=== PATIENT | male | born 1945 | race American Indian/Alaskan Native ===

== ENCOUNTER 2018-07-25 21:48 | Inpatient (IN) | payer MEDICARE, MEDICAID ==
[2018-07-25] MEDS ORDERED: Dextrose 50% SYRINGE Inj (50 ml) IV STA ×2 (21:55→22:00)
[2018-07-25] MEDS ORDERED: Dextrose 50% SYRINGE Inj (50 ml) ONE (22:02)
[2018-07-25] MEDS ORDERED: Sodium Chloride 0.9% 1,000 ML IV ONE (22:18)
--- NOTE | 2018-07-25 22:28 | C.PDOC ---
History Of Present Illness 67 year old male is brought in by EMS for evaluation. As per EMS patient was found in the street, cold, wet and with altered mental status. Patient currently sleeping while in the ED. Unable to obtain history from patient. Time Seen by Provider: 07/25/18 22:17 Chief Complaint (Nursing): Medical Clearance History Per: EMS History/Exam Limitations: clinical condition Onset/Duration Of Symptoms: Hrs Current Symptoms Are (Timing): Still Present Recent travel outside of the [place]: No Additional History Per: EMS Past Medical History Reviewed: Historical Data, Nursing Documentation, Vital Signs Vital Signs: Last Vital Signs Temp 88.1 F L 07/25/18 22:04 Pulse 68 L 07/25/18 22:04 Resp 14 L 07/25/18 22:04 BP 97/46 H 07/25/18 22:04 Pulse Ox 92 L 07/25/18 22:04 - Medical History PMH: No Chronic Diseases Surgical History: No Surg Hx Family History: States: Unknown Family Hx - Social History Hx Tobacco Use: No Hx Alcohol Use: No Hx Substance Use: No Review Of Systems Review Of Systems: ROS cannot be obtained secondary to pt's inabilty to answer questions. Physical Exam - Physical Exam Appears: Other (sleeping, responds to painful stimuli) Skin: Warm, Dry, Other (small 0.5 cm skin flap over the MCP) Head: Atraumatic, Normacephalic Eye(s): bilateral: Normal Inspection Neck: Supple Chest: Symmetrical Cardiovascular: Rhythm Regular Respiratory: No Rales, No Rhonchi, No Wheezing Gastrointestinal/Abdominal: Soft, No Tenderness Back: Normal Inspection Extremity: Bilateral: Atraumatic, Normal Color And Temperature, Normal ROM Neurological/Psych: Other (sleeping, responds to painful stimuli) Gait: Unable To Assess ED Course And Treatment - Laboratory Results Result Diagrams: 07/25/18 22:50 07/25/18 22:50 ECG: Interpreted By Me, Viewed By Me O2 Sat by Pulse Oximetry: 100 (ON RA) Pulse Ox Interpretation: Normal - Radiology CXR: Interpreted by Me, Viewed By Me CXR Interpretation: Yes: COPD. No: Infiltrates, Fracture, Cardiomegaly - CT Scan/US CT head Other Rad Studies (CT/US): Read By Radiologist, Radiology Report Reviewed CT/US Interpretation: CT scan of the head. CLINICAL HISTORY: Change in mental staus. TECHNIQUE: Multiple axial CT images were obtained through the brain without IV contrast material. COMMENTS: There is normal configuration of sella turcica. There are no intra or extra-axial collections. There is no mass effect or midline shift. There is no evidence of hematoma formation. No hydrocephalus is present. The ventricles are symmetrical. No abnormal calcifications are present. There is diffuse age-appropriate cerebellar and cerebral atrophy with proportionally dilated ventricles and cortical sulci. There are bilateral periventricular and subcortical white matter hypolucencies compatible with mild chronic microvascular disease. Otherwise, no significant focal abnormalities are seen either in the posterior fossa or supratentorial compartment. IMPRESSION: 1. Age-appropriate cerebellar and cerebral atrophy. 2. Mild chronic microvascular disease. 3. No evidence of acute intracranial pathology. Thank you for your kind referral of this patient. . Electronically signed on Jul 26, 2018 1:43:11 AM EST by: Claudia Fields M.D., Certified by JENNIFER, MSK, Neuroradiolog Progress Note: Plan: - ABG. - EKG. - Labs. - CXR. - IV fluids. - Blood culture. - UA. Nurse attempted to obtain rectal temperature, patient became agitated, combative moving all extremities kicking trying to bite. Immediately went back to sleep Reevaluation Time: 04:51 Reassessment Condition: Improved Disposition Discussed With Dr.: Benito Means Comment: accepted the pt on his service and took over the care at 6:02 AM Doctor Will See Patient In The: ED Counseled Patient/Family Regarding: Studies Performed, Diagnosis, Need For Followup - Disposition Referrals: [facility] [Outside] Disposition: HOSPITALIZED Disposition Time: 22:27 Condition: FAIR Instructions: Hypothermia Forms: ePrep (Kazakh) - Clinical Impression Clinical Impression: Medical assessment, Hypothermia - Scribe Statement The provider has reviewed the documentation as recorded by the Scribe Yunior Mccall All medical record entries made by the Scribe were at my direction and personally dictated by me. I have reviewed the chart and agree that the record accurately reflects my personal performance of the history, physical exam, medical decision making, and the department course for this patient. I have also personally directed, reviewed, and agree with the discharge instructions and disposition. Decision To Admit - Pt Status Changed To: Hospital Disposition Of: Inpatient - Admit Certification Admit to Inpatient:: After my assessment, the patient will require hospitalization for at least two midnights. This is because of the severity of symptoms shown, intensity of services needed, and/or the medical risk in this patient being treated as an outpatient. - InPatient: Physician Admission Certification: I certify that this patient requires 2 or more midnights of care for the following reason:: After my assessment, the patient will require hospitalization for at least two midnights. This is because of the severity of symptoms shown, intensity of services needed, and/or the medical risk in this patient being treated as an outpatient. - . Bed Request Type: Regular Admitting Physician: Benito Means Patient Diagnosis: Medical assessment, Hypothermia
[2018-07-25 22:50] LABS: ABG ALLEN TEST POS; ARTERIAL BLOOD GAS HCO3 22.9 mmol/L (21-28); ARTERIAL BLOOD GAS O2 SAT 96.1 % (95-98); ARTERIAL BLOOD GAS PCO2 42 mm/Hg (35-45); ARTERIAL BLOOD GAS PH 7.35 (7.35-7.45); ARTERIAL BLOOD GAS PO2 69 mm/Hg (80-100); ARTERIAL BLOOD GAS TCO2 24.5 mmol/L (22-28)
[2018-07-25 22:54] LABS: BASO # 0.1 K/uL (0.0-0.2); BASO % 0.6 % (0.0-2.0); EOS % 0.1 % (0.0-4.0); LYMPH # 1.9 K/uL (1.0-4.3); LYMPH % 17.1 % (20.0-40.0); MEAN CORPUSCULAR HEMOGLOBIN 29.4 pg (27.0-31.0); MEAN PLATELET VOLUME 8.9 fL (7.2-11.7); MONO # 0.8 K/uL (0.0-0.8); MONO % 6.8 % (0.0-10.0); NEUT # 8.4 K/uL (1.8-7.0); NEUT % 75.4 % (50.0-75.0); RBC 4.09 Mil/uL (4.40-5.90); WHITE BLOOD COUNT 11.2 K/uL (4.8-10.8)
[2018-07-25 23:07] LABS: ALB/GLOB RATIO 1.3 (1.0-2.1); ALBUMIN 4.5 g/dL (3.5-5.0); ALT/SGPT 27 U/L (21-72); AST/SGOT 47 U/L (17-59); BLOOD UREA NITROGEN 22 mg/dL (9-20); CALCIUM 9.4 mg/dl (8.6-10.4); GFR NON-AFRICAN AMERICAN > 60; LIPASE 104 U/L (23-300)
[2018-07-25 23:09] LABS: INR 1.1; PROTHROMBIN TIME 11.6 SECONDS (9.7-12.2)
[2018-07-26 00:15] LABS: URINE BILIRUBIN NEGATIVE (NEGATIVE); URINE BLOOD NEGATIVE (NEGATIVE); URINE CLARITY Clear (Clear); URINE COLOR Straw (YELLOW); URINE GLUCOSE (UA) 1+ mg/dL (Normal); URINE LEUKOCYTE ESTERASE NEG Leu/uL (Negative); URINE PROTEIN 1+ mg/dL (NEGATIVE); URINE UROBILINOGEN NORMAL mg/dL (0.2-1.0)
[2018-07-26] MEDS ORDERED: Dextrose 50% SYRINGE Inj (50 ml) IV STA ×2 (01:35→06:06)
[2018-07-26] MEDS ORDERED: Dextrose 50% SYRINGE Inj (50 ml) ONE (01:39)
[2018-07-26] MEDS ORDERED: Dextrose 25% Inj (10ml) ONE (06:00)
--- NOTE | 2018-07-26 08:47 | CT ---
Date of service: 07/26/2018 PROCEDURE: CT HEAD WITHOUT CONTRAST. HISTORY: [place] ms COMPARISON: None available. TECHNIQUE: Axial computed tomography images were obtained through the head/brain without intravenous contrast. Radiation dose: Total exam DLP = 2066.47 mGy-cm. This CT exam was performed using one or more of the following dose reduction techniques: Automated exposure control, adjustment of the mA and/or kV according to patient size, and/or use of iterative reconstruction technique. FINDINGS: HEMORRHAGE: No intracranial hemorrhage. BRAIN: No mass effect or edema. No significant atrophy. Minimal periventricular white matter lucency consistent with chronic microvascular white matter ischemic change. VENTRICLES: Unremarkable. No hydrocephalus. CALVARIUM: Unremarkable. PARANASAL SINUSES: Unremarkable as visualized. No significant inflammatory changes. MASTOID AIR CELLS: Unremarkable as visualized. No inflammatory changes. OTHER FINDINGS: None. IMPRESSION: No intracranial mass, hemorrhage or evidence of acute infarct. Minimal chronic white matter ischemic change. The preliminary findings for this examination were reported by [facility] Radiology at 1:43 a.m. on 07/26/2018. There is concurrence of this report with the preliminary findings.
[2018-07-26] MEDS ORDERED: Dextrose 5%/0.9% NS 1,000 ML IV ONE (09:16)
[2018-07-26] MEDS ORDERED: Bacitracin 500 Units/gm Oint Foilpak UD TOP ONE (09:17)
[2018-07-26] MEDS ORDERED: Albuterol-Ipratrop 3 mg / 0.5 (3 ml) UD INH PRN (09:21)
--- NOTE | 2018-07-26 09:32 | CP.PCM.HP ---
<BurtEvelio - Last Filed: 07/26/18 09:35> History of Present Illness - History of Present Illness History of Present Illness: Evelio [place] PGY1 H&P for Dr. Helm CC: Homeless Pt is a 73yo AA M with PMH DVT, gout brought in to ED by EMS after being found on the street wet and cold. Pt is homeless. He currently reports some abdominal pain but has no other complaints. When asked regarding medical history, he endorses DVT and gout. He does not give complete history at this time. He denies any chest pain, dizziness, shortness of breath, fever, chills, nausea, vomiting, diarrhea, dysuria. PMH: DVT, gout SxH: denies SocH: denies tobacco, etoh, or recreational drug use. homeless. FamH: denies Allergies: NKDA PMD: Dr. Kannan Nolasco 12 point ROS reviewed and negative other than stated above. Present on Admission - Present on Admission Any Indicators Present on Admission: Yes History of DVT/PE: Yes Review of Systems - Review of Systems Review of Systems: as per HPI Past Patient History - PSYCHIATRIC Hx Substance Use: No Meds Allergies/Adverse Reactions: Allergies Allergy/AdvReac Type Severity Reaction Status Date / Time Unobtainable Allergy Verified 07/26/18 01:21 Physical Exam - Constitutional Appears: Well, No Acute Distress - Head Exam Head Exam: ATRAUMATIC, NORMOCEPHALIC - Eye Exam Eye Exam: EOMI, Normal appearance, PERRL Pupil Exam: NORMAL ACCOMODATION - ENT Exam ENT Exam: Mucous Membranes Moist - Neck Exam Neck exam: Positive for: Normal Inspection - Respiratory Exam Respiratory Exam: Clear to Auscultation Bilateral, NORMAL BREATHING PATTERN. absent: Rales, Rhonchi, Wheezes - Cardiovascular Exam Cardiovascular Exam: REGULAR RHYTHM, +S1, +S2. absent: Gallop, Rubs, Systolic Murmur - GI/Abdominal Exam GI & Abdominal Exam: Normal Bowel Sounds, Soft. absent: Distended, Firm, Tenderness - Extremities Exam Extremities exam: Positive for: pedal pulses present. Negative for: joint swelling, pedal edema Additional comments: RUE: abrasion on dorsal R 2nd digit, no surrounding erythema or warmth, no drainage xerosis in b/l LE - Neurological Exam Neurological exam: Reflexes Normal Additional comments: AAO x1, to person - Psychiatric Exam Additional comments: reports depression denies SI/HI - Skin Skin Exam: Dry, Warm Results - Vital Signs Recent Vital Signs: Last Vital Signs Temp 98.2 F 07/26/18 08:00 Pulse 81 07/26/18 08:00 Resp 20 07/26/18 08:00 BP 114/70 07/26/18 08:00 Pulse Ox 99 07/26/18 08:00 - Labs Result Diagrams: 07/25/18 22:50 07/25/18 22:50 Labs: Laboratory Results - last 24 hr 07/25/18 07/25/18 07/25/18 21:55 21:57 22:29 WBC RBC Hgb Hct MCV MCH MCHC RDW Plt Count MPV Neut % (Auto) Lymph % (Auto) Ferry % (Auto) Eos % (Auto) Baso % (Auto) Neut # (Auto) Lymph # (Auto) Ferry # (Auto) Eos # (Auto) Baso # (Auto) PT INR APTT Puncture Site pCO2 pO2 HCO3 ABG pH ABG Total CO2 ABG O2 Saturation ABG Base Excess Wes[place] Test ABG Potassium Sodium Chloride Glucose Lactate Potassium Carbon Dioxide Anion Gap BUN Creatinine Est GFR ( Amer) Est GFR (Non-Af Amer) POC Glucose (mg/dL) 57 L 60 L 187 H Random Glucose Calcium Magnesium Total Bilirubin AST ALT Alkaline Phosphatase Total Protein Albumin Globulin Albumin/Globulin Ratio Lipase Arterial Blood Potassium Urine Color Urine Clarity Urine pH Ur Specific [place] Urine Protein Urine Glucose (UA) Urine Ketones Urine Blood Urine Nitrate Urine Bilirubin Urine Urobilinogen Ur Leukocyte Esterase Urine WBC (Auto) Urine RBC (Auto) Alcohol, Quantitative 07/25/18 07/25/18 07/25/18 22:46 22:50 22:50 WBC 11.2 H RBC 4.09 L Hgb 12.0 Hct 36.4 MCV 89.0 MCH 29.4 MCHC 33.0 RDW 14.0 Plt Count 202 MPV 8.9 Neut % (Auto) 75.4 H Lymph % (Auto) 17.1 L Ferry % (Auto) 6.8 Eos % (Auto) 0.1 Baso % (Auto) 0.6 Neut # (Auto) 8.4 H Lymph # (Auto) 1.9 Ferry # (Auto) 0.8 Eos # (Auto) 0.0 Baso # (Auto) 0.1 PT 11.6 INR 1.1 APTT 30 Puncture Site Lr pCO2 42 pO2 69 L HCO3 22.9 ABG pH 7.35 ABG Total CO2 24.5 ABG O2 Saturation 96.1 ABG Base Excess -2.4 L Wesly Test Pos ABG Potassium 3.5 L Sodium 138.0 Chloride 106.0 Glucose 158 H Lactate 1.5 Potassium Carbon Dioxide Anion Gap BUN Creatinine Est GFR ( Amer) Est GFR (Non-Af Amer) POC Glucose (mg/dL) Random Glucose Calcium Magnesium Total Bilirubin AST ALT Alkaline Phosphatase Total Protein Albumin Globulin Albumin/Globulin Ratio Lipase Arterial Blood Potassium 3.5 L Urine Color Urine Clarity Urine pH Ur Specific [place] Urine Protein Urine Glucose (UA) Urine Ketones Urine Blood Urine Nitrate Urine Bilirubin Urine Urobilinogen Ur Leukocyte Esterase Urine WBC (Auto) Urine RBC (Auto) Alcohol, Quantitative 07/25/18 07/26/18 07/26/18 22:50 00:10 01:16 WBC RBC Hgb Hct MCV MCH MCHC RDW Plt Count MPV Neut % (Auto) Lymph % (Auto) Ferry % (Auto) Eos % (Auto) Baso % (Auto) Neut # (Auto) Lymph # (Auto) Ferry # (Auto) Eos # (Auto) Baso # (Auto) PT INR APTT Puncture Site pCO2 pO2 HCO3 ABG pH ABG Total CO2 ABG O2 Saturation ABG Base Excess Wes[place] Test ABG Potassium Sodium 135 Chloride 98 Glucose Lactate Potassium 4.1 Carbon Dioxide 22 Anion Gap 19 BUN 22 H Creatinine 0.6 L Est GFR ( Amer) > 60 Est GFR (Non-Af Amer) > 60 POC Glucose (mg/dL) 62 L Random Glucose 61 L Calcium 9.4 Magnesium 2.2 Total Bilirubin 1.1 AST 47 ALT 27 Alkaline Phosphatase 109 Total Protein 7.9 Albumin 4.5 Globulin 3.5 Albumin/Globulin Ratio 1.3 Lipase 104 Arterial Blood Potassium Urine Color Straw Urine Clarity Clear Urine pH 5.0 Ur Specific [place] 1.014 Urine Protein 1+ H Urine Glucose (UA) 1+ H Urine Ketones 1+ H Urine Blood Negative Urine Nitrate Negative Urine Bilirubin Negative Urine Urobilinogen Normal Ur Leukocyte Esterase Neg Urine WBC (Auto) < 1 Urine RBC (Auto) < 1 Alcohol, Quantitative < 10 07/26/18 07/26/18 07/26/18 01:21 05:48 05:50 WBC RBC Hgb Hct MCV MCH MCHC RDW Plt Count MPV Neut % (Auto) Lymph % (Auto) Ferry % (Auto) Eos % (Auto) Baso % (Auto) Neut # (Auto) Lymph # (Auto) Ferry # (Auto) Eos # (Auto) Baso # (Auto) PT INR APTT Puncture Site pCO2 pO2 HCO3 ABG pH ABG Total CO2 ABG O2 Saturation ABG Base Excess Wes[place] Test ABG Potassium Sodium Chloride Glucose Lactate Potassium Carbon Dioxide Anion Gap BUN Creatinine Est GFR ( Amer) Est GFR (Non-Af Amer) POC Glucose (mg/dL) 60 L 54 L 63 L Random Glucose Calcium Magnesium Total Bilirubin AST ALT Alkaline Phosphatase Total Protein Albumin Globulin Albumin/Globulin Ratio Lipase Arterial Blood Potassium Urine Color Urine Clarity Urine pH Ur Specific [place] Urine Protein Urine Glucose (UA) Urine Ketones Urine Blood Urine Nitrate Urine Bilirubin Urine Urobilinogen Ur Leukocyte Esterase Urine WBC (Auto) Urine RBC (Auto) Alcohol, Quantitative 07/26/18 07:14 WBC RBC Hgb Hct MCV MCH MCHC RDW Plt Count MPV Neut % (Auto) Lymph % (Auto) Ferry % (Auto) Eos % (Auto) Baso % (Auto) Neut # (Auto) Lymph # (Auto) Ferry # (Auto) Eos # (Auto) Baso # (Auto) PT INR APTT Puncture Site pCO2 pO2 HCO3 ABG pH ABG Total CO2 ABG O2 Saturation ABG Base Excess Wes[place] Test ABG Potassium Sodium Chloride Glucose Lactate Potassium Carbon Dioxide Anion Gap BUN Creatinine Est GFR ( Amer) Est GFR (Non-Af Amer) POC Glucose (mg/dL) 89 Random Glucose Calcium Magnesium Total Bilirubin AST ALT Alkaline Phosphatase Total Protein Albumin Globulin Albumin/Globulin Ratio Lipase Arterial Blood Potassium Urine Color Urine Clarity Urine pH Ur Specific [place] Urine Protein Urine Glucose (UA) Urine Ketones Urine Blood Urine Nitrate Urine Bilirubin Urine Urobilinogen Ur Leukocyte Esterase Urine WBC (Auto) Urine RBC (Auto) Alcohol, Quantitative Assessment & Plan - Assessment and Plan (Free Text) Assessment: 73yo AA M with PMH DVT, gout brought in to ED by EMS after being found on the street wet and cold, admitted for hypothermia. Pt temperature improved, hemodynamically stable. Plan: Hypothermia - T 95.7 on admission - f/o infectious cause - likely cold-induced as pt is homeless - temperature now improved - UA negative for leuk esterase, UTI unlikely - D5W NS @40cc/hr - f/u BCx Change in Mental Status - pt not able to give full history at this time - CT head negative for acute pathology, age-appropriate cerebellar/cerebral atrophy - blood alcohol negative - f/u UDS - D5W NS @40cc/hr - PT/OT H/o DVT - unable to obtain history at this time, unknown date of last thrombotic event - pt reports medication noncompliance - restart home eliquis 5mg PO BID H/o Asthma/COPD - pt saturating well on room air - CXR: mild congestion, COPD - lungs CTA b/l - duonebs q4h PRN H/o Gout - no appreciable joint swelling - restart home colchicine 0.6mg PO daily Depression - pt reports depression, denies HI/SI - likely secondary to social situation, homelessness - Psych consulted, Dr. Bermudez - f/u recs PPX GI: protonix 40 daily DVT: eliquis HHD Pt seen and case reviewed with Dr. Helm <Rosa Helm - Last Filed: 07/27/18 18:08> Results - Vital Signs Recent Vital Signs: Last Vital Signs Temp 97.9 F 07/27/18 15:36 Pulse 80 07/27/18 15:36 Resp 20 07/27/18 15:36 BP 116/73 07/27/18 15:36 Pulse Ox 99 07/27/18 15:36 - Labs Result Diagrams: 07/27/18 07:26 07/27/18 07:26 Labs: Laboratory Results - last 24 hr 07/26/18 07/27/18 07/27/18 21:36 06:09 07:26 WBC 5.4 D RBC 3.49 L Hgb 10.3 L Hct 30.6 L MCV 87.8 MCH 29.7 MCHC 33.8 RDW 14.0 Plt Count 174 MPV 8.2 Neut % (Auto) 60.9 Lymph % (Auto) 27.2 Ferry % (Auto) 10.0 Eos % (Auto) 1.3 Baso % (Auto) 0.6 Neut # (Auto) 3.3 Lymph # (Auto) 1.5 Ferry # (Auto) 0.5 Eos # (Auto) 0.1 Baso # (Auto) 0.0 Sodium Potassium Chloride Carbon Dioxide Anion Gap BUN Creatinine Est GFR ( Amer) Est GFR (Non-Af Amer) POC Glucose (mg/dL) 198 H 164 H Random Glucose Calcium Phosphorus Magnesium Total Bilirubin AST ALT Alkaline Phosphatase Total Protein Albumin Globulin Albumin/Globulin Ratio 07/27/18 07/27/18 07/27/18 07:26 11:19 16:27 WBC RBC Hgb Hct MCV MCH MCHC RDW Plt Count MPV Neut % (Auto) Lymph % (Auto) Ferry % (Auto) Eos % (Auto) Baso % (Auto) Neut # (Auto) Lymph # (Auto) Ferry # (Auto) Eos # (Auto) Baso # (Auto) Sodium 137 Potassium 4.1 Chloride 105 Carbon Dioxide 28 Anion Gap 8 L BUN 21 H Creatinine 0.8 Est GFR ( Amer) > 60 Est GFR (Non-Af Amer) > 60 POC Glucose (mg/dL) 98 132 H Random Glucose 169 H Calcium 7.8 L Phosphorus 3.0 Magnesium 2.0 Total Bilirubin 0.4 AST 55 ALT 32 Alkaline Phosphatase 65 Total Protein 5.6 L Albumin 2.8 L D Globulin 2.8 Albumin/Globulin Ratio 1.0 Attending/Attestation - Attestation I have personally seen and examined this patient.: Yes I have fully participated in the care of the patient.: Yes I have reviewed all pertinent clinical information: Yes Notes (Text): seen and examined,patient is awake and oriented and doesn't want to be bothered He knows his meds. State that he takes his meds and follow his primary care. He takes Eliquis for DVT and cochicine for his gout d/w resident continue meds,follow cultures,follow PT recommendation
[2018-07-26] MEDS: Pantoprazole 40 mg EC Tab PO SCH (10:30)
--- NOTE | 2018-07-26 10:36 | RAD ---
Date of service: 07/26/2018 PROCEDURE: CHEST RADIOGRAPH, 1 VIEW HISTORY: SOB COMPARISON: None available. FINDINGS: LUNGS: Clear. PLEURA: No pneumothorax or pleural fluid seen. CARDIOVASCULAR: No aortic atherosclerotic calcification present. Normal. OSSEOUS STRUCTURES: No significant abnormalities. VISUALIZED UPPER ABDOMEN: Normal. OTHER FINDINGS: None. IMPRESSION: No active disease.
--- NOTE | 2018-07-26 12:07 | PCM.PSYCH ---
Initial Psychiatric Evaluation - Initial Psychiatric Evaluation Type of Admission: Voluntary Legal Status: Capacity Chief Complaint (in patient's own words): I am tired History of Present Illness and Precipitating Events: Pt is seen, chart reviewed, case discussed Consult was requested for depression. 73 y M w/ PMHx of DVT & Gout brought to ED for wandering outside in the cold weather, wet. Patient initially was extremely tired, sleeping. Upon arousal, patient stated they keep probing me. Patient stated he is tired of this all and they are constantly watching him. Patient denied hallucinations. Patient denies suicidal/homicidal idealizations. Patient stated he "loves his body too much" Patient offers no other complaints. Patient does state he is extremelty sleepy, as he kept falling asleep on assessment. Was not able to gather any further information as he kept falling asleep. Current Medications: Active Medications Generic Name Dose Route Start Last Admin Trade Name Freq PRN Reason Stop Dose Admin Albuterol/Ipratropium 3 ml 07/26/18 09:21 Duoneb 3 Mg/0.5 Mg (3 Ml) Ud INH RQ4 PRN Shortness of Breath Apixaban 5 mg 07/26/18 10:00 07/26/18 10:30 Eliquis PO 5 mg BID CONCEPCION Administration Colchicine 0.6 mg 07/26/18 10:00 07/26/18 10:30 Colocrys PO 0.6 mg DAILY CONCEPCION Administration Dextrose/Sodium Chloride 1,000 mls @ 40 mls/hr 07/26/18 09:16 07/26/18 10:10 Dextrose 5%/0.9% Ns 1000 Ml IV 07/27/18 09:15 40 mls/hr .Q24H ONE Administration Pantoprazole Sodium 40 mg 07/26/18 10:00 07/26/18 10:30 Protonix Ec Tab PO 40 mg DAILY CONCEPCION Administration Risperidone 0.5 mg 07/26/18 12:00 Risperdal Tab PO DAILY CONCEPCION Past Psychiatric History - Past Psychiatric History Pertinent Medical Hx (Current Medical&Sleep Prob, Allergies): Allergies Allergy/AdvReac Type Severity Reaction Status Date / Time Unobtainable Allergy Verified 07/26/18 01:21 Albuterol 0.042% [Albuterol 0.042% Inhal Brittani (1.25mg/3ml) UD] 1 dose INH Q4 PRN 07/26/18 Albuterol HFA [Ventolin HFA 90 mcg/actuation (8 g)] 2 puff INH BID 07/26/18 Albuterol/Ipratropium [Combivent Respimat] 2 puff INH BID 07/26/18 Allopurinol [Zyloprim] 1 tab PO DAILY 07/26/18 Apixaban [Eliquis] 5 mg PO BID 07/26/18 Atorvastatin [Lipitor] 1 tab PO DAILY 07/26/18 Furosemide [Lasix] 20 mg PO DAILY 07/26/18 Losartan [Cozaar] 1 tab PO DAILY 07/26/18 Risperidone [Risperdal] 1 tab PO DAILY 07/26/18 SITagliptin [Januvia] 1 tab PO DAILY 07/26/18 Zolpidem [Ambien] 1 tab PO HS PRN 07/26/18 Review of Systems - Psychiatric Psychiatric: absent: Confusion, Hallucinations, Homicidal Ideation, Hopelessness Mental Status Examination - Personal Presentation Personal Presentation: Looks stated age - Affect Affect: Constricted - Motor Activity Motor Activity: Calm - Reliability in Providing Information Reliability in Providing Information: Poor, due to alteration in thoughts - Speech Speech: Disorganized - Mood Additional comments: No homocidal ideation - Hallucinations/Delusions Hallucinations: Visual - Risk Risk: Diminished functioning DSM 5 DX - DSM 5 DSM 5 Diagnosis: Schizoaffective disorder - Recommended/Plan of Treatment Treatment Recommendations and Plan of Treatment: Risperidone 0.5 mg daily Haldol 0.5 mg Q6H PRN for agitation As needed medications All risks, benefits and alternatives of the meds discussed, and the pt agreed and understood. Supportive therapy and psychoeducation Refer to rehab or IOP, and self-help groups Teach healthy lifestyle methods, i.e. diet, exercise, meditation
[2018-07-26 12:18] LABS: BARBITURATES, UR NEGATIVE (NEGATIVE); BENZODIAZEPINES, UR NEGATIVE (NEGATIVE); OPIATES, UR NEGATIVE (NEGATIVE); PHENCYCLIDINE, UR NEGATIVE (NEGATIVE)
[2018-07-27 07:33] LABS: BASO % 0.6 % (0.0-2.0); EOS # 0.1 K/uL (0.0-0.7); EOS % 1.3 % (0.0-4.0); HEMOGLOBIN 10.3 g/dL (12.0-18.0); LYMPH # 1.5 K/uL (1.0-4.3); LYMPH % 27.2 % (20.0-40.0); MEAN CELL VOLUME 87.8 fL (80.0-94.0); MEAN CORPUSCULAR HEMOGLOBIN 29.7 pg (27.0-31.0); MEAN CORPUSCULAR HGB CONC 33.8 g/dL (33.0-37.0); MEAN PLATELET VOLUME 8.2 fL (7.2-11.7); MONO # 0.5 K/uL (0.0-0.8); NEUT # 3.3 K/uL (1.8-7.0); NEUT % 60.9 % (50.0-75.0); RBC 3.49 Mil/uL (4.40-5.90)
[2018-07-27 07:44] LABS: WHITE BLOOD COUNT 5.4 K/uL (4.8-10.8)
[2018-07-27 08:15] LABS: ALBUMIN 2.8 g/dL (3.5-5.0); ALT/SGPT 32 U/L (21-72); AST/SGOT 55 U/L (17-59); BLOOD UREA NITROGEN 21 mg/dL (9-20); CALCIUM 7.8 mg/dl (8.6-10.4); GFR NON-AFRICAN AMERICAN > 60
[2018-07-27] MEDS: Pantoprazole 40 mg EC Tab PO SCH (10:47)
--- NOTE | 2018-07-27 15:51 | CP.PCM.PN ---
<Evelio Dallas - Last Filed: 07/27/18 15:55> Subjective - Date & Time of Evaluation Date of Evaluation: 07/27/18 Time of Evaluation: 15:48 - Subjective Subjective: Evelio Dallas PGY1 Progress Note for Dr. Helm Pt was examined at beside this morning. He reports swelling of his joints.He denies any chest pain, shortness of breath, dizziness, abdominal pain, nausea, vomiting, diarrhea, dysuria. Social/Psych: He reports living on the streets, spending time in [employer]. He reports losing his apartment because he didn't pay rent. He denies having any friends, and refuses to contact his family. He reports talking to himself for no particular reason. He denies delusions or hallucinations, or par anoia. Objective - Vital Signs/Intake and Output Vital Signs (last 24 hours): Temp Pulse Resp BP Pulse Ox 97.9 F 80 20 116/73 99 07/27/18 15:36 07/27/18 15:36 07/27/18 15:36 07/27/18 15:36 07/27/18 15:36 Intake and Output: 07/27/18 07/27/18 06:59 18:59 Intake Total 320 Balance 320 - Medications Medications: Current Medications Albuterol/Ipratropium (Duoneb 3 Mg/0.5 Mg (3 Ml) Ud) 3 ml INH RQ4 PRN PRN Reason: Shortness of Breath Apixaban (Eliquis) 5 mg PO BID [facility] Last Admin: 07/27/18 10:47 Dose: 5 mg Colchicine (Colocrys) 0.6 mg PO DAILY [facility] Last Admin: 07/27/18 10:46 Dose: 0.6 mg Furosemide (Lasix) 20 mg PO DAILY [facility] Last Admin: 07/27/18 10:46 Dose: 20 mg Haloperidol (Haldol) 0.5 mg PO Q6H PRN PRN Reason: Agitation Influenza Virus Vaccine (Fluzone Quad [id number]) 60 mcg IM .ONCE ONE Stop: 07/28/18 10:01 Losartan Potassium (Cozaar) 50 mg PO DAILY [facility] Last Admin: 07/27/18 10:47 Dose: 50 mg Pantoprazole Sodium (Protonix Ec Tab) 40 mg PO DAILY [facility] Last Admin: 07/27/18 10:47 Dose: 40 mg Pneumococcal Polyvalent Vaccine (Pneumovax 23 Vaccine) 0.5 ml IM .ONCE ONE Stop: 07/28/18 10:01 Risperidone (Risperdal Tab) 0.5 mg PO DAILY [facility] Last Admin: 07/27/18 10:47 Dose: 0.5 mg Rosuvastatin Calcium (Crestor) 10 mg PO HS [facility] Last Admin: 07/26/18 21:13 Dose: 10 mg Zolpidem Tartrate (Ambien) 5 mg PO HS PRN PRN Reason: Insomnia - Labs Labs: 07/27/18 07:26 07/27/18 07:26 PT 11.6 SECONDS (9.7-12.2) 07/25/18 22:50 INR 1.1 07/25/18 22:50 APTT 30 SECONDS (21-34) 07/25/18 22:50 - Additional Findings Additional findings: - Constitutional Appears: Well, No Acute Distress - Head Exam Head Exam: ATRAUMATIC, NORMOCEPHALIC - Eye Exam Eye Exam: EOMI, Normal appearance, PERRL Pupil Exam: NORMAL ACCOMODATION - ENT Exam ENT Exam: Mucous Membranes Moist - Neck Exam Neck exam: Positive for: Normal Inspection - Respiratory Exam Respiratory Exam: Clear to Auscultation Bilateral, NORMAL BREATHING PATTERN. absent: Rales, Rhonchi, Wheezes - Cardiovascular Exam Cardiovascular Exam: REGULAR RHYTHM, +S1, +S2. absent: Gallop, Rubs, Systolic Murmur - GI/Abdominal Exam GI & Abdominal Exam: Normal Bowel Sounds, Soft. absent: Distended, Firm, Tenderness - Extremities Exam Extremities exam: Positive for: pedal pulses present. Negative for: joint swelling, pedal edema Additional comments: RUE: abrasion on dorsal R 2nd digit, no surrounding erythema or warmth, no drainage xerosis in b/l LE - Neurological Exam Neurological exam: Reflexes Normal Additional comments: AAO x1, to person - Psychiatric Exam Additional comments: reports depression denies SI/HI - Skin Skin Exam: Dry, Warm Assessment and Plan - Assessment and Plan (Free Text) Assessment: Assessment: 73yo AA M with PMH DVT, gout brought in to ED by EMS after being found on the street wet and cold, admitted for hypothermia. Pt temperature improved, hemodynamically stable for discharge. Awaiting social work to obtain placement. Plan: Hypothermia, resolved - T 95.7 on admission - likely cold-induced as pt is homeless - temperature now improved - UA negative for leuk esterase, UTI unlikely - BCx neg Change in Mental Status, improved - pt talkative, able to give history - CT head negative for acute pathology, age-appropriate cerebellar/cerebral atrophy - blood alcohol negative - UDS: negative - PT/OT: recommending [facility] H/o DVT - unable to obtain history at this time, unknown date of last thrombotic event - pt reports medication noncompliance - eliquis 5mg PO BID H/o Asthma/COPD - pt saturating well on room air - CXR: mild congestion, COPD - duonebs q4h PRN - lasix 20mg PO daily H/o Gout - no appreciable joint swelling - colchicine 0.6mg PO BID Depression/Schizoaffective - pt reports talking to himself - risperdal 0.5mg PO daily - haldol 0.5mg PO q6h PRN - Psych consulted, Dr. Bermudez - f/u recs PPX GI: protonix 40 daily DVT: eliquis HHD Pt seen and case reviewed with Dr. Helm <Rosa Helm - Last Filed: 07/27/18 17:10> Objective - Vital Signs/Intake and Output Vital Signs (last 24 hours): Temp Pulse Resp BP Pulse Ox 97.9 F 80 20 116/73 99 07/27/18 15:36 07/27/18 15:36 07/27/18 15:36 07/27/18 15:36 07/27/18 15:36 Intake and Output: 07/27/18 07/27/18 06:59 18:59 Intake Total 320 Balance 320 - Medications Medications: Current Medications Albuterol/Ipratropium (Duoneb 3 Mg/0.5 Mg (3 Ml) Ud) 3 ml INH RQ4 PRN PRN Reason: Shortness of Breath Apixaban (Eliquis) 5 mg PO BID [facility] Last Admin: 07/27/18 10:47 Dose: 5 mg Colchicine (Colocrys) 0.6 mg PO BID [facility] Furosemide (Lasix) 20 mg PO DAILY [facility] Last Admin: 07/27/18 10:46 Dose: 20 mg Haloperidol (Haldol) 0.5 mg PO Q6H PRN PRN Reason: Agitation Influenza Virus Vaccine (Fluzone Quad [id number]) 60 mcg IM .ONCE ONE Stop: 07/28/18 10:01 Losartan Potassium (Cozaar) 50 mg PO DAILY [facility] Last Admin: 07/27/18 10:47 Dose: 50 mg Pantoprazole Sodium (Protonix Ec Tab) 40 mg PO DAILY [facility] Last Admin: 07/27/18 10:47 Dose: 40 mg Pneumococcal Polyvalent Vaccine (Pneumovax 23 Vaccine) 0.5 ml IM .ONCE ONE Stop: 07/28/18 10:01 Risperidone (Risperdal Tab) 0.5 mg PO DAILY [facility] Last Admin: 07/27/18 10:47 Dose: 0.5 mg Rosuvastatin Calcium (Crestor) 10 mg PO HS [facility] Last Admin: 07/26/18 21:13 Dose: 10 mg Zolpidem Tartrate (Ambien) 5 mg PO HS PRN PRN Reason: Insomnia - Labs Labs: 07/27/18 07:26 07/27/18 07:26 PT 11.6 SECONDS (9.7-12.2) 07/25/18 22:50 INR 1.1 07/25/18 22:50 APTT 30 SECONDS (21-34) 07/25/18 22:50 Attending/Attestation - Attestation I have personally seen and examined this patient.: Yes I have fully participated in the care of the patient.: Yes I have reviewed all pertinent clinical information, including history, physical exam and plan: Yes Notes (Text): seen and examined\ Hypothermia resolved,cultures negative continue his out pt meds andrew and Haresh follow his primary after discharge d/w SW about discharge plan we will aske psychiatris to evaluate g=his capacity to maek medical decision Patient has h/o behavioral/psych issues d/w resident
--- NOTE | 2018-07-27 19:58 | CARD ---
APPROVED REPORT Date of service: 07/26/2018 EKG Measurement Heart [id number] <Conclusion> Normal sinus rhythm Minimal voltage criteria for LVH, may be normal variant Borderline ECG
--- NOTE | 2018-07-27 19:59 | CARD ---
APPROVED REPORT Date of service: 07/26/2018 EKG Measurement Heart [id number] <Conclusion> Normal sinus rhythm Possible Left atrial enlargement Borderline ECG
[2018-07-28 08:06] LABS: BASO % 0.5 % (0.0-2.0); EOS # 0.2 K/uL (0.0-0.7); EOS % 3.1 % (0.0-4.0); HEMOGLOBIN 10.7 g/dL (12.0-18.0); LYMPH # 1.7 K/uL (1.0-4.3); LYMPH % 35.1 % (20.0-40.0); MEAN CELL VOLUME 88.4 fL (80.0-94.0); MEAN CORPUSCULAR HEMOGLOBIN 29.3 pg (27.0-31.0); MEAN CORPUSCULAR HGB CONC 33.2 g/dL (33.0-37.0); MEAN PLATELET VOLUME 8.7 fL (7.2-11.7); MONO # 0.6 K/uL (0.0-0.8); MONO % 11.8 % (0.0-10.0); NEUT # 2.4 K/uL (1.8-7.0); NEUT % 49.5 % (50.0-75.0); RBC 3.63 Mil/uL (4.40-5.90); WHITE BLOOD COUNT 4.9 K/uL (4.8-10.8)
[2018-07-28 08:25] LABS: ALB/GLOB RATIO 1.1 (1.0-2.1); ALBUMIN 3.1 g/dL (3.5-5.0); ALT/SGPT 31 U/L (21-72); AST/SGOT 50 U/L (17-59); BLOOD UREA NITROGEN 21 mg/dL (9-20); CALCIUM 8.2 mg/dl (8.6-10.4); GFR NON-AFRICAN AMERICAN > 60
--- NOTE | 2018-07-28 09:51 | CP.PCM.PN ---
<Evelio Dallas - Last Filed: 07/28/18 15:17> Subjective - Date & Time of Evaluation Date of Evaluation: 07/28/18 Time of Evaluation: 09:49 - Subjective Subjective: Evelio Dallas PGY1 Progress note for Dr. Helm Pt was examined at bedside this morning. He reports improvement in his joint swelling. He has no other complaints today. He denies dizziness, chest pain, shortness of breath, abdominal pain, nausea, vomiting, diarrhea, dysuria. Objective - Vital Signs/Intake and Output Vital Signs (last 24 hours): Temp Pulse Resp BP Pulse Ox 97.3 F L 84 20 132/81 98 07/28/18 07:57 07/28/18 07:57 07/28/18 07:57 07/28/18 07:57 07/28/18 07:57 Intake and Output: 07/28/18 07/28/18 06:59 18:59 Intake Total 500 750 Balance 500 750 - Medications Medications: Current Medications Albuterol/Ipratropium (Duoneb 3 Mg/0.5 Mg (3 Ml) Ud) 3 ml INH RQ4 PRN PRN Reason: Shortness of Breath Apixaban (Eliquis) 5 mg PO BID [facility] Last Admin: 07/27/18 17:28 Dose: 5 mg Colchicine (Colocrys) 0.6 mg PO BID [facility] Last Admin: 07/27/18 17:52 Dose: 0.6 mg Furosemide (Lasix) 20 mg PO DAILY [facility] Last Admin: 07/27/18 10:46 Dose: 20 mg Haloperidol (Haldol) 0.5 mg PO Q6H PRN PRN Reason: Agitation Last Admin: 07/27/18 18:03 Dose: 0.5 mg Influenza Virus Vaccine (Fluzone Quad [id number]) 60 mcg IM .ONCE ONE Stop: 07/28/18 10:01 Losartan Potassium (Cozaar) 50 mg PO DAILY [facility] Last Admin: 07/27/18 10:47 Dose: 50 mg Pantoprazole Sodium (Protonix Ec Tab) 40 mg PO DAILY [facility] Last Admin: 07/27/18 10:47 Dose: 40 mg Pneumococcal Polyvalent Vaccine (Pneumovax 23 Vaccine) 0.5 ml IM .ONCE ONE Stop: 07/28/18 10:01 Risperidone (Risperdal Tab) 0.5 mg PO DAILY [facility] Last Admin: 07/27/18 10:47 Dose: 0.5 mg Rosuvastatin Calcium (Crestor) 10 mg PO HS [facility] Last Admin: 07/27/18 21:25 Dose: 10 mg Zolpidem Tartrate (Ambien) 5 mg PO HS PRN PRN Reason: Insomnia - Labs Labs: 07/28/18 07:52 07/28/18 07:52 PT 11.6 SECONDS (9.7-12.2) 07/25/18 22:50 INR 1.1 07/25/18 22:50 APTT 30 SECONDS (21-34) 07/25/18 22:50 - Additional Findings Additional findings: - Constitutional Appears: Well, No Acute Distress - Head Exam Head Exam: ATRAUMATIC, NORMOCEPHALIC - Eye Exam Eye Exam: EOMI, Normal appearance, PERRL Pupil Exam: NORMAL ACCOMODATION - ENT Exam ENT Exam: Mucous Membranes Moist - Neck Exam Neck exam: Positive for: Normal Inspection - Respiratory Exam Respiratory Exam: Clear to Auscultation Bilateral, NORMAL BREATHING PATTERN. absent: Rales, Rhonchi, Wheezes - Cardiovascular Exam Cardiovascular Exam: REGULAR RHYTHM, +S1, +S2. absent: Gallop, Rubs, Systolic Murmur - GI/Abdominal Exam GI & Abdominal Exam: Normal Bowel Sounds, Soft. absent: Distended, Firm, Tenderness - Extremities Exam Extremities exam: Positive for: pedal pulses present. Negative for: joint swelling, pedal edema Additional comments: RUE: abrasion on dorsal R 2nd digit, no surrounding erythema or warmth, no drainage xerosis in b/l LE - Neurological Exam Neurological exam: Reflexes Normal Additional comments: AAO x1, to person - Psychiatric Exam Additional comments: reports depression denies SI/HI - Skin Skin Exam: Dry, Warm Assessment and Plan - Assessment and Plan (Free Text) Assessment: 73yo AA M with PMH DVT, gout brought in to ED by EMS after being found on the street wet and cold, admitted for hypothermia. Pt temperature improved, hemodynamically stable for discharge. Awaiting social work to obtain placement. Psych endorsing patient has capacity to make decisions. Plan: Hypothermia, resolved - T 95.7 on admission - likely cold-induced as pt is homeless - temperature now improved - CT head negative for acute pathology, age-appropriate cerebellar/cerebral atrophy - UA negative for leuk esterase, UTI unlikely - BCx neg H/o DVT - eliquis 5mg PO BID H/o Asthma/COPD - pt saturating well on room air - CXR: mild congestion, COPD - duonebs q4h PRN - lasix 20mg PO daily H/o Gout - no appreciable joint swelling - colchicine 0.6mg PO BID Depression/Schizoaffective - pt reports talking to himself - risperdal 0.5mg PO daily - haldol 0.5mg PO q6h PRN - Psych consulted, Dr. Bermudez - f/u recs PPX GI: protonix 40 daily DVT: eliquis PT/OT: recommending [facility] HHD Pt seen and case reviewed with Dr. Helm <Rosa Helm - Last Filed: 07/28/18 16:47> Objective - Vital Signs/Intake and Output Vital Signs (last 24 hours): Temp Pulse Resp BP Pulse Ox 98.3 F 77 20 120/66 97 07/28/18 15:50 07/28/18 15:50 07/28/18 15:50 07/28/18 15:50 07/28/18 15:50 Intake and Output: 07/28/18 07/28/18 06:59 18:59 Intake Total 500 750 Balance 500 750 - Medications Medications: Current Medications Albuterol/Ipratropium (Duoneb 3 Mg/0.5 Mg (3 Ml) Ud) 3 ml INH RQ4 PRN PRN Reason: Shortness of Breath Apixaban (Eliquis) 5 mg PO BID [facility] Last Admin: 07/28/18 10:00 Dose: 5 mg Colchicine (Colocrys) 0.6 mg PO BID [facility] Last Admin: 07/28/18 10:01 Dose: 0.6 mg Furosemide (Lasix) 20 mg PO DAILY [facility] Last Admin: 07/28/18 10:01 Dose: 20 mg Haloperidol (Haldol) 0.5 mg PO Q6H PRN PRN Reason: Agitation Last Admin: 07/27/18 18:03 Dose: 0.5 mg Losartan Potassium (Cozaar) 50 mg PO DAILY [facility] Last Admin: 07/28/18 10:00 Dose: 50 mg Pantoprazole Sodium (Protonix Ec Tab) 40 mg PO DAILY [facility] Last Admin: 07/28/18 10:01 Dose: 40 mg Risperidone (Risperdal Tab) 0.5 mg PO DAILY [facility] Last Admin: 07/28/18 10:02 Dose: 0.5 mg Rosuvastatin Calcium (Crestor) 10 mg PO HS [facility] Last Admin: 07/27/18 21:25 Dose: 10 mg Zolpidem Tartrate (Ambien) 5 mg PO HS PRN PRN Reason: Insomnia - Labs Labs: 07/28/18 07:52 07/28/18 07:52 PT 11.6 SECONDS (9.7-12.2) 07/25/18 22:50 INR 1.1 07/25/18 22:50 APTT 30 SECONDS (21-34) 07/25/18 22:50 Attending/Attestation - Attestation I have personally seen and examined this patient.: Yes I have fully participated in the care of the patient.: Yes I have reviewed all pertinent clinical information, including history, physical exam and plan: Yes Notes (Text): Seen and examined .He wants diet free of red meat and organ meat for his gout He state that he is compliance with his meds Seen by psychiatrist. Patient has capacity make medical decision. Spoke to SW about rehab agree with the resident's documentation
[2018-07-28] MEDS ORDERED: Influenza Vaccine 60 MCG/0.5 ML SYR (3 yr & up) IM ONE (10:00)
[2018-07-28] MEDS ORDERED: Pneumococcal 23-Valent Vaccine IM ONE (10:00)
[2018-07-28] MEDS: Pantoprazole 40 mg EC Tab PO SCH (10:01)
--- NOTE | 2018-07-28 10:02 | PCM.PYCHPN ---
Psychiatric Progress Note - Psychiatric Progress Note Patient seen today, length of contact: 16 min Patient Chief Complaint: "I'm fine" Problems Identified/Issues Discussed: Seen, case discussed No new sxs He got one dose of haloperidol Otherwise he is OK No confusion, no delusions Denies SI, HI Pleasant, jovial at times Patient has capacity to make decisions at this point in time Medication Change: Yes (start risperidone) Medical Record Reviewed: Yes Mental Status Examination - Cognitive Function Orientation: Person, Place Memory: Impaired Attention: Poor Concentration: Poor Association: WNL Fund of Knowledge: Poor - Mood Mood: Anxious - Affect Affect: Constricted - Speech Speech: Slurred - Formal Thought Process Formal Thought Process: Perservation - Suicidal Ideation Suicidal Ideation: No - Homicidal Ideation Homicidal Ideation: No Goal/Treatment Plan - Goal/Treatment Plan Need for Continued Stay: Severe functional impairment, Other (medical) Progress Toward Problem(s) and Goals/Treatment Plan: Continue meds Support and psychoed No change in plan
[2018-07-29] MEDS: Pantoprazole 40 mg EC Tab PO SCH (09:33)
--- NOTE | 2018-07-29 10:58 | CP.PCM.PN ---
<MilviaTamraMago Y - Last Filed: 07/29/18 18:02> Subjective - Date & Time of Evaluation Date of Evaluation: 07/29/18 Time of Evaluation: 09:45 - Subjective Subjective: PGY-1 Medicine Progress Note for Dr. Helm Patient was seen and examined today at bedside in no acute distress. Patient did attempt to leave AMA overnight, voicing that he was being held here involuntarily, but then changed his mind to leave after breakfast. He has no new complaints. But refuses to answer further questioning. He also refused blood work all day. Objective - Vital Signs/Intake and Output Vital Signs (last 24 hours): Temp Pulse Resp BP Pulse Ox 97.9 F 79 20 127/72 96 07/29/18 07:37 07/29/18 07:37 07/29/18 07:37 07/29/18 09:33 07/29/18 07:37 Intake and Output: 07/29/18 07/29/18 06:59 18:59 Output Total 500 Balance -500 - Medications Medications: Current Medications Albuterol/Ipratropium (Duoneb 3 Mg/0.5 Mg (3 Ml) Ud) 3 ml INH RQ4 PRN PRN Reason: Shortness of Breath Apixaban (Eliquis) 5 mg PO BID [facility] Last Admin: 07/29/18 09:33 Dose: 5 mg Colchicine (Colocrys) 0.6 mg PO BID [facility] Last Admin: 07/29/18 09:33 Dose: 0.6 mg Furosemide (Lasix) 20 mg PO DAILY [facility] Last Admin: 07/29/18 09:33 Dose: 20 mg Haloperidol (Haldol) 0.5 mg PO Q6H PRN PRN Reason: Agitation Last Admin: 07/27/18 18:03 Dose: 0.5 mg Losartan Potassium (Cozaar) 50 mg PO DAILY [facility] Last Admin: 07/29/18 09:33 Dose: 50 mg Pantoprazole Sodium (Protonix Ec Tab) 40 mg PO DAILY [facility] Last Admin: 07/29/18 09:33 Dose: 40 mg Risperidone (Risperdal Tab) 0.5 mg PO DAILY [facility] Last Admin: 07/29/18 09:33 Dose: 0.5 mg Rosuvastatin Calcium (Crestor) 10 mg PO HS [facility] Last Admin: 07/28/18 21:26 Dose: 10 mg Zolpidem Tartrate (Ambien) 5 mg PO HS PRN PRN Reason: Insomnia - Labs Labs: 07/28/18 07:52 07/28/18 07:52 PT 11.6 SECONDS (9.7-12.2) 07/25/18 22:50 INR 1.1 07/25/18 22:50 APTT 30 SECONDS (21-34) 07/25/18 22:50 - Constitutional Appears: No Acute Distress - Extremities Exam Extremities Exam: Pedal Edema - Psychiatric Exam Psychiatric exam: Agitated - Additional Findings Additional findings: Patient refused all physical examination. Assessment and Plan - Assessment and Plan (Free Text) Assessment: 73yo AA M with PMH DVT, gout brought in to ED by EMS after being found on the street wet and cold, admitted for hypothermia. Pt temperature improved, hemodynamically stable for discharge. Awaiting social work to obtain placement. Psych endorsing patient has capacity to make decisions. Plan: Hypothermia, resolved - likely cold-induced as patient is homeless - T 95.7 on admission - temperature now improved - CT Head (07/26): negative for acute pathology, age-appropriate cerebellar /cerebral atrophy - UA negative for leuk esterase, UTI unlikely - Blood Cx neg Asthma/COPD - pt saturating well on room air - CXR: mild congestion, COPD - duonebs q4h PRN - lasix 20mg PO daily Gout - no appreciable joint swelling - colchicine 0.6mg PO BID H/o DVT - Eliquis 5mg PO BID Depression/Schizoaffective - pt reports talking to himself - risperdal 0.5mg PO daily - haldol 0.5mg PO q6h PRN - Psych consulted, Dr. Bermudez - recs appreciated - Patient has capacity to make medical decisions PPX - DVT: Eliquis - GI: Protonix 40 daily - Diet: HHD, lactose restricted Dispo: PT/OT recommends [facility]. SW/CM is unable to obtain family, ID, or proof of insurance. Patient has threatened to AMA multiple times. d/w Dr. Alicja Steel PGY-1 <Rosa Helm - Last Filed: 07/30/18 20:02> Objective - Vital Signs/Intake and Output Vital Signs (last 24 hours): Temp Pulse Resp BP Pulse Ox 98 F 80 20 114/66 100 07/30/18 15:00 07/30/18 15:00 07/30/18 15:00 07/30/18 15:00 07/30/18 15:00 - Medications Medications: Current Medications Albuterol/Ipratropium (Duoneb 3 Mg/0.5 Mg (3 Ml) Ud) 3 ml INH RQ4 PRN PRN Reason: Shortness of Breath Apixaban (Eliquis) 5 mg PO BID [facility] Last Admin: 07/30/18 19:08 Dose: Not Given Colchicine (Colocrys) 0.6 mg PO BID [facility] Last Admin: 07/30/18 19:08 Dose: Not Given Furosemide (Lasix) 20 mg PO DAILY [facility] Last Admin: 07/30/18 09:27 Dose: 20 mg Haloperidol (Haldol) 0.5 mg PO Q6H PRN PRN Reason: Agitation Last Admin: 07/27/18 18:03 Dose: 0.5 mg Losartan Potassium (Cozaar) 50 mg PO DAILY [facility] Last Admin: 07/30/18 09:27 Dose: 50 mg Pantoprazole Sodium (Protonix Ec Tab) 40 mg PO DAILY [facility] Last Admin: 07/30/18 09:28 Dose: 40 mg Risperidone (Risperdal Tab) 0.5 mg PO DAILY [facility] Last Admin: 07/30/18 09:27 Dose: 0.5 mg Rosuvastatin Calcium (Crestor) 10 mg PO HS [facility] Last Admin: 07/29/18 21:37 Dose: 10 mg Zolpidem Tartrate (Ambien) 5 mg PO HS PRN PRN Reason: Insomnia - Labs Labs: 07/28/18 07:52 07/28/18 07:52 PT 11.6 SECONDS (9.7-12.2) 07/25/18 22:50 INR 1.1 07/25/18 22:50 APTT 30 SECONDS (21-34) 07/25/18 22:50 Attending/Attestation - Attestation I have personally seen and examined this patient.: Yes I have fully participated in the care of the patient.: Yes I have reviewed all pertinent clinical information, including history, physical exam and plan: Yes Notes (Text): No complain No confusion noted alert and oriented x3 Homeless and weak pending rehab continue his home meds/he is compliance with meds
--- NOTE | 2018-07-30 07:37 | CP.PCM.PN ---
<Evelio Dallas - Last Filed: 07/30/18 16:30> Subjective - Date & Time of Evaluation Date of Evaluation: 07/30/18 Time of Evaluation: 07:36 - Subjective Subjective: Evelio Dallas PGY1 Progress Note for Dr. Helm Pt was examined at bedside this morning. He reports L sided hip pain. He has no other complaints. He denies dizziness, shortness of breath, chest pain, abdominal pain, nausea, vomiting, diarrhea, dysuria. Objective - Vital Signs/Intake and Output Vital Signs (last 24 hours): Temp Pulse Resp BP Pulse Ox 97.6 F 77 20 123/83 100 07/29/18 23:05 07/29/18 23:05 07/29/18 23:05 07/29/18 23:05 07/29/18 23:05 Intake and Output: 07/30/18 07/30/18 06:59 18:59 Intake Total 300 Output Total 400 Balance -100 - Medications Medications: Current Medications Albuterol/Ipratropium (Duoneb 3 Mg/0.5 Mg (3 Ml) Ud) 3 ml INH RQ4 PRN PRN Reason: Shortness of Breath Apixaban (Eliquis) 5 mg PO BID [facility] Last Admin: 07/29/18 18:17 Dose: 5 mg Colchicine (Colocrys) 0.6 mg PO BID [facility] Last Admin: 07/29/18 19:00 Dose: 0.6 mg Furosemide (Lasix) 20 mg PO DAILY [facility] Last Admin: 07/29/18 09:33 Dose: 20 mg Haloperidol (Haldol) 0.5 mg PO Q6H PRN PRN Reason: Agitation Last Admin: 07/27/18 18:03 Dose: 0.5 mg Losartan Potassium (Cozaar) 50 mg PO DAILY [facility] Last Admin: 07/29/18 09:33 Dose: 50 mg Pantoprazole Sodium (Protonix Ec Tab) 40 mg PO DAILY [facility] Last Admin: 07/29/18 09:33 Dose: 40 mg Risperidone (Risperdal Tab) 0.5 mg PO DAILY [facility] Last Admin: 07/29/18 09:33 Dose: 0.5 mg Rosuvastatin Calcium (Crestor) 10 mg PO HS [facility] Last Admin: 07/29/18 21:37 Dose: 10 mg Zolpidem Tartrate (Ambien) 5 mg PO HS PRN PRN Reason: Insomnia - Labs Labs: 07/28/18 07:52 07/28/18 07:52 PT 11.6 SECONDS (9.7-12.2) 07/25/18 22:50 INR 1.1 07/25/18 22:50 APTT 30 SECONDS (21-34) 07/25/18 22:50 - Additional Findings Additional findings: - Constitutional Appears: Well, No Acute Distress - Head Exam Head Exam: ATRAUMATIC, NORMOCEPHALIC - Eye Exam Eye Exam: EOMI, Normal appearance, PERRL Pupil Exam: NORMAL ACCOMODATION - ENT Exam ENT Exam: Mucous Membranes Moist - Neck Exam Neck exam: Positive for: Normal Inspection - Respiratory Exam Respiratory Exam: Clear to Auscultation Bilateral, NORMAL BREATHING PATTERN. absent: Rales, Rhonchi, Wheezes - Cardiovascular Exam Cardiovascular Exam: REGULAR RHYTHM, +S1, +S2. absent: Gallop, Rubs, Systolic Murmur - GI/Abdominal Exam GI & Abdominal Exam: Normal Bowel Sounds, Soft. absent: Distended, Firm, Tenderness - Extremities Exam Extremities exam: Positive for: pedal pulses present. Negative for: joint swelling, pedal edema Additional comments: RUE: abrasion on dorsal R 2nd digit, no surrounding erythema or warmth, no drainage xerosis in b/l LE - Neurological Exam Neurological exam: Reflexes Normal Additional comments: AAO x1, to person - Psychiatric Exam Additional comments: reports depression denies SI/HI - Skin Skin Exam: Dry, Warm Assessment and Plan - Assessment and Plan (Free Text) Assessment: 73yo AA M with PMH DVT, gout brought in to ED by EMS after being found on the street wet and cold, admitted for hypothermia. Pt temperature improved, hemodynamically stable for discharge. Awaiting social work to obtain placement. Psych endorsing patient has capacity to make decisions. Accepted to [facility], awaiting insurance approval. Plan: Hypothermia, resolved - T 95.7 on admission - likely cold-induced as pt is homeless - temperature now improved - CT head negative for acute pathology, age-appropriate cerebellar/cerebral atrophy - UA negative for leuk esterase, UTI unlikely - BCx neg H/o DVT - eliquis 5mg PO BID H/o Asthma/COPD - pt saturating well on room air - CXR: mild congestion, COPD - duonebs q4h PRN - lasix 20mg PO daily H/o Gout - no appreciable joint swelling - colchicine 0.6mg PO BID Depression/Schizoaffective - pt reports talking to himself - risperdal 0.5mg PO daily - haldol 0.5mg PO q6h PRN - Psych consulted, Dr. Bermudez - f/u recs PPX GI: protonix 40 daily DVT: eliquis PT/OT: recommending [facility] Pt seen and case reviewed with Dr. Helm <Rosa Helm - Last Filed: 07/30/18 20:01> Objective - Vital Signs/Intake and Output Vital Signs (last 24 hours): Temp Pulse Resp BP Pulse Ox 98 F 80 20 114/66 100 07/30/18 15:00 07/30/18 15:00 07/30/18 15:00 07/30/18 15:00 07/30/18 15:00 - Medications Medications: Current Medications Albuterol/Ipratropium (Duoneb 3 Mg/0.5 Mg (3 Ml) Ud) 3 ml INH RQ4 PRN PRN Reason: Shortness of Breath Apixaban (Eliquis) 5 mg PO BID [facility] Last Admin: 07/30/18 19:08 Dose: Not Given Colchicine (Colocrys) 0.6 mg PO BID [facility] Last Admin: 07/30/18 19:08 Dose: Not Given Furosemide (Lasix) 20 mg PO DAILY [facility] Last Admin: 07/30/18 09:27 Dose: 20 mg Haloperidol (Haldol) 0.5 mg PO Q6H PRN PRN Reason: Agitation Last Admin: 07/27/18 18:03 Dose: 0.5 mg Losartan Potassium (Cozaar) 50 mg PO DAILY [facility] Last Admin: 07/30/18 09:27 Dose: 50 mg Pantoprazole Sodium (Protonix Ec Tab) 40 mg PO DAILY [facility] Last Admin: 07/30/18 09:28 Dose: 40 mg Risperidone (Risperdal Tab) 0.5 mg PO DAILY [facility] Last Admin: 07/30/18 09:27 Dose: 0.5 mg Rosuvastatin Calcium (Crestor) 10 mg PO HS [facility] Last Admin: 07/29/18 21:37 Dose: 10 mg Zolpidem Tartrate (Ambien) 5 mg PO HS PRN PRN Reason: Insomnia - Labs Labs: 07/28/18 07:52 07/28/18 07:52 PT 11.6 SECONDS (9.7-12.2) 07/25/18 22:50 INR 1.1 07/25/18 22:50 APTT 30 SECONDS (21-34) 07/25/18 22:50 Attending/Attestation - Attestation I have personally seen and examined this patient.: Yes I have fully participated in the care of the patient.: Yes I have reviewed all pertinent clinical information, including history, physical exam and plan: Yes Notes (Text): Seen and examiend and he is alert and oriented x 3 Denies pain Pending rehab approval he follows his primary care and compliance with treatment d/w resident
[2018-07-30] MEDS: Pantoprazole 40 mg EC Tab PO SCH (09:28)
--- NOTE | 2018-07-31 02:35 | CP.PCM.PN ---
<MilviaTamraMago Carey - Last Filed: 07/31/18 02:26> Subjective - Date & Time of Evaluation Date of Evaluation: 07/31/18 Time of Evaluation: 04:45 - Subjective Subjective: PGY-1 Medicine Progress Note for Dr. Helm Patient was seen at bedside in no acute distress. Nurse reports and it was observed that the patient talks to himself through the night and [place] in irritating his roommate all night as to not be able to sleep. He complains about the hospital food, but has no medical complaints. Denies chest pain, shortness of breath, n/v/d. He is generally uncooperative, including with interview. Objective - Vital Signs/Intake and Output Vital Signs (last 24 hours): Temp Pulse Resp BP Pulse Ox 98 F 80 20 114/66 100 07/30/18 15:00 07/30/18 15:00 07/30/18 15:00 07/30/18 15:00 07/30/18 15:00 Intake and Output: 07/30/18 07/31/18 18:59 06:59 Output Total 700 Balance -700 - Medications Medications: Current Medications Albuterol/Ipratropium (Duoneb 3 Mg/0.5 Mg (3 Ml) Ud) 3 ml INH RQ4 PRN PRN Reason: Shortness of Breath Apixaban (Eliquis) 5 mg PO BID [facility] Last Admin: 07/30/18 19:08 Dose: Not Given Colchicine (Colocrys) 0.6 mg PO BID [facility] Last Admin: 07/30/18 19:08 Dose: Not Given Furosemide (Lasix) 20 mg PO DAILY [facility] Last Admin: 07/30/18 09:27 Dose: 20 mg Haloperidol (Haldol) 0.5 mg PO Q6H PRN PRN Reason: Agitation Last Admin: 07/27/18 18:03 Dose: 0.5 mg Losartan Potassium (Cozaar) 50 mg PO DAILY [facility] Last Admin: 07/30/18 09:27 Dose: 50 mg Pantoprazole Sodium (Protonix Ec Tab) 40 mg PO DAILY [facility] Last Admin: 07/30/18 09:28 Dose: 40 mg Risperidone (Risperdal Tab) 0.5 mg PO DAILY [facility] Last Admin: 07/30/18 09:27 Dose: 0.5 mg Rosuvastatin Calcium (Crestor) 10 mg PO HS [facility] Last Admin: 07/30/18 21:03 Dose: Not Given Zolpidem Tartrate (Ambien) 5 mg PO HS PRN PRN Reason: Insomnia - Labs Labs: 07/28/18 07:52 07/28/18 07:52 PT 11.6 SECONDS (9.7-12.2) 07/25/18 22:50 INR 1.1 07/25/18 22:50 APTT 30 SECONDS (21-34) 07/25/18 22:50 - Constitutional Appears: Well, No Acute Distress - Head Exam Head Exam: ATRAUMATIC, NORMOCEPHALIC - Eye Exam Eye Exam: EOMI, Normal appearance - ENT Exam ENT Exam: Mucous Membranes Moist - Respiratory Exam Respiratory Exam: Clear to Ausculation Bilateral - Cardiovascular Exam Cardiovascular Exam: REGULAR RHYTHM, +S1, +S2 - GI/Abdominal Exam GI & Abdominal Exam: Soft, Normal Bowel Sounds. absent: Tenderness - Extremities Exam Extremities Exam: Normal Capillary Refill Additional comments: RUE: abrasion on dorsal R 2nd digit, no surrounding erythema or warmth, no drainage xerosis in b/l LE - Neurological Exam Neurological Exam: Alert, Awake, Oriented x3 - Psychiatric Exam Psychiatric exam: Agitated. absent: Homicidal Ideation, Suicidal Ideation - Skin Skin Exam: Normal Color, Warm Assessment and Plan - Assessment and Plan (Free Text) Assessment: 73yo AA M with PMH DVT, gout brought in to ED by EMS after being found on the street wet and cold, admitted for hypothermia. Pt temperature improved, hemodynamically stable for discharge. Awaiting social work to obtain placement. Psych endorsing patient has capacity to make decisions. Accepted to [facility], awaiting insurance approval. Plan: Hypothermia, resolved - likely cold-induced as patient is homeless - T 95.7 on admission - temperature now improved - CT Head (07/26): negative for acute pathology, age-appropriate cerebellar/cerebral atrophy - UA negative for leuk esterase, UTI unlikely - Blood Cx neg Asthma/COPD - pt saturating well on room air - CXR: mild congestion, COPD - duonebs q4h PRN - lasix 20mg PO daily Gout - no appreciable joint swelling - colchicine 0.6mg PO BID H/o DVT - Eliquis 5mg PO BID Depression/Schizoaffective - pt reports talking to himself - risperdal 0.5mg PO daily - haldol 0.5mg PO q6h PRN - Psych consulted, Dr. Bermudez - recs appreciated - Patient has capacity to make medical decisions PPX - DVT: Eliquis - GI: Protonix 40 daily - Diet: HHD, lactose restricted <Rosa Helm - Last Filed: 07/31/18 12:25> Objective - Vital Signs/Intake and Output Vital Signs (last 24 hours): Temp Pulse Resp BP Pulse Ox 97.3 F L 73 18 130/78 98 07/31/18 07:00 07/31/18 07:00 07/31/18 07:00 07/31/18 10:05 07/31/18 07:00 Intake and Output: 07/31/18 07/31/18 06:59 18:59 Intake Total 480 Output Total 700 Balance -700 480 - Medications Medications: Current Medications Albuterol/Ipratropium (Duoneb 3 Mg/0.5 Mg (3 Ml) Ud) 3 ml INH RQ4 PRN PRN Reason: Shortness of Breath Apixaban (Eliquis) 5 mg PO BID [facility] Last Admin: 07/31/18 10:05 Dose: 5 mg Colchicine (Colocrys) 0.6 mg PO BID [facility] Last Admin: 07/31/18 10:06 Dose: 0.6 mg Furosemide (Lasix) 20 mg PO DAILY [facility] Last Admin: 07/31/18 10:05 Dose: 20 mg Haloperidol (Haldol) 0.5 mg PO Q6H PRN PRN Reason: Agitation Last Admin: 07/27/18 18:03 Dose: 0.5 mg Losartan Potassium (Cozaar) 50 mg PO DAILY [facility] Last Admin: 07/31/18 10:05 Dose: 50 mg Pantoprazole Sodium (Protonix Ec Tab) 40 mg PO DAILY [facility] Last Admin: 07/31/18 10:05 Dose: 40 mg Risperidone (Risperdal Tab) 0.5 mg PO DAILY [facility] Last Admin: 07/31/18 10:06 Dose: 0.5 mg Rosuvastatin Calcium (Crestor) 10 mg PO HS [facility] Last Admin: 07/30/18 21:03 Dose: Not Given Zolpidem Tartrate (Ambien) 5 mg PO HS PRN PRN Reason: Insomnia - Labs Labs: 12/19/18 07:52 07/28/18 07:52 PT 11.6 SECONDS (9.7-12.2) 07/25/18 22:50 INR 1.1 07/25/18 22:50 APTT 30 SECONDS (21-34) 07/25/18 22:50 Attending/Attestation - Attestation I have personally seen and examined this patient.: Yes I have fully participated in the care of the patient.: Yes I have reviewed all pertinent clinical information, including history, physical exam and plan: Yes Notes (Text): Patient has no complain.He doesn't want to be disturbed . He state that he was started on Eliquis at [facility] for his DVT. asked to take for 6momths. Doesn't remember how long ago he was diagnosed we will get records from [facility] pending rehab placement Denies pain
[2018-07-31] MEDS: Pantoprazole 40 mg EC Tab PO SCH (10:05)
--- NOTE | 2018-08-01 02:29 | CP.PCM.PN ---
<Mago Steel - Last Filed: 08/01/18 02:22> Subjective - Date & Time of Evaluation Date of Evaluation: 08/01/18 Time of Evaluation: 05:00 - Subjective Subjective: PGY-1 Medicine Progress Note for Dr. Helm Patient was seen and examined at bedside in no acute distress. Nurse reports continuing agitation and uncooperative behavior. Denies chest pain, shortness of breath, n/v/d. He is generally uncooperative, including with interview. Objective - Vital Signs/Intake and Output Vital Signs (last 24 hours): Temp Pulse Resp BP Pulse Ox 97.6 F 83 20 111/62 99 07/31/18 23:10 07/31/18 23:10 07/31/18 23:10 07/31/18 23:10 07/31/18 23:10 Intake and Output: 07/31/18 08/01/18 18:59 06:59 Intake Total 480 Output Total 200 Balance 480 -200 - Medications Medications: Current Medications Albuterol/Ipratropium (Duoneb 3 Mg/0.5 Mg (3 Ml) Ud) 3 ml INH RQ4 PRN PRN Reason: Shortness of Breath Apixaban (Eliquis) 5 mg PO BID [facility] Last Admin: 07/31/18 17:12 Dose: 5 mg Colchicine (Colocrys) 0.6 mg PO BID [facility] Last Admin: 07/31/18 17:12 Dose: 0.6 mg Furosemide (Lasix) 20 mg PO DAILY [facility] Last Admin: 07/31/18 10:05 Dose: 20 mg Haloperidol (Haldol) 0.5 mg PO Q6H PRN PRN Reason: Agitation Last Admin: 07/27/18 18:03 Dose: 0.5 mg Losartan Potassium (Cozaar) 50 mg PO DAILY [facility] Last Admin: 07/31/18 10:05 Dose: 50 mg Pantoprazole Sodium (Protonix Ec Tab) 40 mg PO DAILY [facility] Last Admin: 07/31/18 10:05 Dose: 40 mg Risperidone (Risperdal Tab) 0.5 mg PO DAILY [facility] Last Admin: 07/31/18 10:06 Dose: 0.5 mg Rosuvastatin Calcium (Crestor) 10 mg PO HS [facility] Last Admin: 07/31/18 21:19 Dose: 10 mg Zolpidem Tartrate (Ambien) 5 mg PO HS PRN PRN Reason: Insomnia - Labs Labs: 07/28/18 07:52 07/28/18 07:52 PT 11.6 SECONDS (9.7-12.2) 07/25/18 22:50 INR 1.1 07/25/18 22:50 APTT 30 SECONDS (21-34) 07/25/18 22:50 - Constitutional Appears: Well, No Acute Distress, Cachectic - Head Exam Head Exam: ATRAUMATIC, NORMOCEPHALIC - Eye Exam Eye Exam: EOMI, Normal appearance - ENT Exam ENT Exam: Mucous Membranes Moist - Respiratory Exam Respiratory Exam: Clear to Ausculation Bilateral - Cardiovascular Exam Cardiovascular Exam: +S1, +S2 - GI/Abdominal Exam GI & Abdominal Exam: Soft, Normal Bowel Sounds. absent: Tenderness - Extremities Exam Extremities Exam: Normal Capillary Refill Additional comments: RUE: abrasion on dorsal R 2nd digit, no surrounding erythema or warmth, no drainage xerosis in b/l LE - Neurological Exam Neurological Exam: Alert, Awake, Oriented x3 - Psychiatric Exam Psychiatric exam: Agitated - Skin Skin Exam: Normal Color, Warm Assessment and Plan - Assessment and Plan (Free Text) Assessment: 73yo AA M with PMH DVT, gout brought in to ED by EMS after being found on the street wet and cold, admitted for hypothermia. Pt temperature improved, hemodynamically stable for discharge. Awaiting social work to obtain placement. Psych endorsing patient has capacity to make decisions. Accepted to [facility], awaiting insurance approval. Plan: Hypothermia, resolved - likely cold-induced as patient is homeless - T 95.7 on admission - temperature now improved - CT Head (07/26): negative for acute pathology, age-appropriate cerebellar/cerebral atrophy - UA negative for leuk esterase, UTI unlikely - Blood Cx neg Asthma/COPD - pt saturating well on room air - CXR: mild congestion, COPD - duonebs q4h PRN - lasix 20mg PO daily Gout - no appreciable joint swelling - colchicine 0.6mg PO BID H/o DVT - Eliquis 5mg PO BID Depression/Schizoaffective - pt reports talking to himself - risperdal 0.5mg PO daily - haldol 0.5mg PO q6h PRN - Psych consulted, Dr. Bermudez - recs appreciated - Patient has capacity to make medical decisions PPX - DVT: Eliquis - GI: Protonix 40 daily - Diet: HHD, lactose restricted <Hector Booker H - Last Filed: 08/01/18 10:17> Objective - Vital Signs/Intake and Output Vital Signs (last 24 hours): Temp Pulse Resp BP Pulse Ox 97.5 F L 70 18 117/70 100 08/01/18 07:00 08/01/18 07:00 08/01/18 07:00 08/01/18 10:03 08/01/18 07:00 Intake and Output: 08/01/18 08/01/18 06:59 18:59 Output Total 200 Balance -200 - Medications Medications: Current Medications Albuterol/Ipratropium (Duoneb 3 Mg/0.5 Mg (3 Ml) Ud) 3 ml INH RQ4 PRN PRN Reason: Shortness of Breath Last Admin: 08/01/18 06:12 Dose: 3 ml Apixaban (Eliquis) 5 mg PO BID [facility] Last Admin: 08/01/18 10:03 Dose: 5 mg Colchicine (Colocrys) 0.6 mg PO BID [facility] Last Admin: 08/01/18 10:03 Dose: 0.6 mg Furosemide (Lasix) 20 mg PO DAILY [facility] Last Admin: 08/01/18 10:03 Dose: 20 mg Haloperidol (Haldol) 0.5 mg PO Q6H PRN PRN Reason: Agitation Last Admin: 07/27/18 18:03 Dose: 0.5 mg Losartan Potassium (Cozaar) 50 mg PO DAILY [facility] Last Admin: 08/01/18 10:03 Dose: 50 mg Pantoprazole Sodium (Protonix Ec Tab) 40 mg PO DAILY [facility] Last Admin: 08/01/18 10:02 Dose: 40 mg Risperidone (Risperdal Tab) 0.5 mg PO DAILY [facility] Last Admin: 08/01/18 10:03 Dose: 0.5 mg Rosuvastatin Calcium (Crestor) 10 mg PO HS [facility] Last Admin: 07/31/18 21:19 Dose: 10 mg Zolpidem Tartrate (Ambien) 5 mg PO HS PRN PRN Reason: Insomnia - Labs Labs: 07/28/18 07:52 07/28/18 07:52 PT 11.6 SECONDS (9.7-12.2) 07/25/18 22:50 INR 1.1 07/25/18 22:50 APTT 30 SECONDS (21-34) 07/25/18 22:50 Attending/Attestation - Attestation I have personally seen and examined this patient.: Yes I have fully participated in the care of the patient.: Yes I have reviewed all pertinent clinical information, including history, physical exam and plan: Yes Notes (Text): 08/01/18 10:14 Medical attending: Patient was seen and examined by me. Agree with the above note by the resident The patient was not in any acute distress - watching television He immediately demanded to know who I was when I came to see he, it was difficult to have conversation with the patient He denies chest pain, denied shortness of breath - he reported he was not happy with the quality of the food here When discussing with the patient he will often go off on tangents that have nothing to do with the questions. He is a homeless male who was found hypothermic - currently temperature is much better Hopefully can go to [facility] at some point. Hector Booker
[2018-08-01] MEDS: Pantoprazole 40 mg EC Tab PO SCH (10:02)
--- NOTE | 2018-08-02 09:41 | CP.PCM.PN ---
<Evelio Dallas - Last Filed: 08/02/18 11:10> Subjective - Date & Time of Evaluation Date of Evaluation: 08/02/18 Time of Evaluation: 09:39 - Subjective Subjective: Evelio Dallas PGY1 Progress Note for Dr. Booker Pt was examined at bedside this morning. He has no complaints today. He denies shortness of breath, chest pain, abdominal pain, nausea, vomiting, diarrhea, dysuria. Objective - Vital Signs/Intake and Output Vital Signs (last 24 hours): Temp Pulse Resp BP Pulse Ox 97.8 F 69 18 122/65 100 08/02/18 07:05 08/02/18 07:05 08/02/18 07:05 08/02/18 07:05 08/02/18 07:05 Intake and Output: 08/02/18 08/02/18 06:59 18:59 Intake Total 480 Output Total 300 Balance 180 - Medications Medications: Current Medications Acetaminophen (Tylenol 325mg Tab) 650 mg PO Q6 PRN PRN Reason: Pain, Mild (1-3) Last Admin: 08/01/18 14:20 Dose: 650 mg Albuterol/Ipratropium (Duoneb 3 Mg/0.5 Mg (3 Ml) Ud) 3 ml INH RQ4 PRN PRN Reason: Shortness of Breath Last Admin: 08/01/18 06:12 Dose: 3 ml Apixaban (Eliquis) 5 mg PO BID [facility] Last Admin: 08/01/18 18:00 Dose: 5 mg Colchicine (Colocrys) 0.6 mg PO BID [facility] Last Admin: 08/01/18 18:01 Dose: 0.6 mg Furosemide (Lasix) 20 mg PO DAILY [facility] Last Admin: 08/01/18 10:03 Dose: 20 mg Haloperidol (Haldol) 0.5 mg PO Q6H PRN PRN Reason: Agitation Last Admin: 07/27/18 18:03 Dose: 0.5 mg Losartan Potassium (Cozaar) 50 mg PO DAILY [facility] Last Admin: 08/01/18 10:03 Dose: 50 mg Pantoprazole Sodium (Protonix Ec Tab) 40 mg PO DAILY [facility] Last Admin: 08/01/18 10:02 Dose: 40 mg Risperidone (Risperdal Tab) 0.5 mg PO DAILY [facility] Last Admin: 08/01/18 10:03 Dose: 0.5 mg Rosuvastatin Calcium (Crestor) 10 mg PO HS [facility] Last Admin: 08/01/18 21:10 Dose: 10 mg Zolpidem Tartrate (Ambien) 5 mg PO HS PRN PRN Reason: Insomnia - Labs Labs: 07/28/18 07:52 07/28/18 07:52 PT 11.6 SECONDS (9.7-12.2) 07/25/18 22:50 INR 1.1 07/25/18 22:50 APTT 30 SECONDS (21-34) 07/25/18 22:50 - Additional Findings Additional findings: - Constitutional Appears: Well, No Acute Distress, Cachectic - Head Exam Head Exam: ATRAUMATIC, NORMOCEPHALIC - Eye Exam Eye Exam: EOMI, Normal appearance - ENT Exam ENT Exam: Mucous Membranes Moist - Respiratory Exam Respiratory Exam: Clear to Ausculation Bilateral - Cardiovascular Exam Cardiovascular Exam: +S1, +S2 - GI/Abdominal Exam GI & Abdominal Exam: Soft, Normal Bowel Sounds. absent: Tenderness - Extremities Exam Extremities Exam: Normal Capillary Refill Additional comments: RUE: abrasion on dorsal R 2nd digit, no surrounding erythema or warmth, no drainage xerosis in b/l LE - Neurological Exam Neurological Exam: Alert, Awake, Oriented x3 - Psychiatric Exam Psychiatric exam: Agitated - Skin Skin Exam: Normal Color, Warm Assessment and Plan - Assessment and Plan (Free Text) Assessment: 73yo AA M with PMH DVT, gout brought in to ED by EMS after being found on the street wet and cold, admitted for hypothermia. Pt temperature improved, hemodynamically stable for discharge. Awaiting social work to obtain placement. Psych endorsing patient has capacity to make decisions. Accepted to [facility], awaiting insurance approval. Plan: Hypothermia, resolved - likely cold-induced as patient is homeless - T 95.7 on admission - temperature now improved - CT Head (07/26): negative for acute pathology, age-appropriate cerebellar/cerebral atrophy - UA negative for leuk esterase, UTI unlikely - Blood Cx neg Asthma/COPD - pt saturating well on room air - CXR: mild congestion, COPD - duonebs q4h PRN - lasix 20mg PO daily Gout - no appreciable joint swelling - colchicine 0.6mg PO BID H/o DVT - Eliquis 5mg PO BID Depression/Schizoaffective - pt reports talking to himself - risperdal 0.5mg PO daily - haldol 0.5mg PO q6h PRN - Psych consulted, Dr. Bermudez - recs appreciated - Patient has capacity to make medical decisions PPX - DVT: Eliquis - GI: Protonix 40 daily - Diet: HHD, lactose restricted Pt seen and case reviewed with Dr. Booker <Hector Booker - Last Filed: 08/02/18 14:24> Objective - Vital Signs/Intake and Output Vital Signs (last 24 hours): Temp Pulse Resp BP Pulse Ox 97.8 F 69 18 122/60 100 08/02/18 07:05 08/02/18 07:05 08/02/18 07:05 08/02/18 10:11 08/02/18 07:05 Intake and Output: 08/02/18 08/02/18 06:59 18:59 Intake Total 480 480 Output Total 300 Balance 180 480 - Medications Medications: Current Medications Acetaminophen (Tylenol 325mg Tab) 650 mg PO Q6 PRN PRN Reason: Pain, Mild (1-3) Last Admin: 08/01/18 14:20 Dose: 650 mg Albuterol/Ipratropium (Duoneb 3 Mg/0.5 Mg (3 Ml) Ud) 3 ml INH RQ4 PRN PRN Reason: Shortness of Breath Last Admin: 08/01/18 06:12 Dose: 3 ml Apixaban (Eliquis) 5 mg PO BID [facility] Last Admin: 08/02/18 10:11 Dose: 5 mg Colchicine (Colocrys) 0.6 mg PO BID [facility] Last Admin: 08/02/18 10:12 Dose: 0.6 mg Furosemide (Lasix) 20 mg PO DAILY [facility] Last Admin: 08/02/18 10:11 Dose: 20 mg Haloperidol (Haldol) 0.5 mg PO Q6H PRN PRN Reason: Agitation Last Admin: 07/27/18 18:03 Dose: 0.5 mg Losartan Potassium (Cozaar) 50 mg PO DAILY [facility] Last Admin: 08/02/18 10:12 Dose: 50 mg Pantoprazole Sodium (Protonix Ec Tab) 40 mg PO DAILY [facility] Last Admin: 08/02/18 10:11 Dose: 40 mg Risperidone (Risperdal Tab) 0.5 mg PO DAILY [facility] Last Admin: 08/02/18 10:12 Dose: 0.5 mg Rosuvastatin Calcium (Crestor) 10 mg PO HS [facility] Last Admin: 08/01/18 21:10 Dose: 10 mg Zolpidem Tartrate (Ambien) 5 mg PO HS PRN PRN Reason: Insomnia - Labs Labs: 07/28/18 07:52 07/28/18 07:52 PT 11.6 SECONDS (9.7-12.2) 07/25/18 22:50 INR 1.1 07/25/18 22:50 APTT 30 SECONDS (21-34) 07/25/18 22:50 Attending/Attestation - Attestation I have personally seen and examined this patient.: Yes I have fully participated in the care of the patient.: Yes I have reviewed all pertinent clinical information, including history, physical exam and plan: Yes Notes (Text): 08/02/18 14:22 Medical attending: Patient was seen and examined by me. Agree with the above note by the resident The patient was not in any acute distress - his affect was much calmer today unlike yesterday when he was very agitated. Yesterday was very uncooperative during exam At this point we are waiting to get the ok to discharge from case workers Hector Booker
[2018-08-02] MEDS: Pantoprazole 40 mg EC Tab PO SCH (10:11)
[2018-08-02 16:04] VITALS: RESP 20
--- NOTE | 2018-08-03 00:10 | CP.PCM.PN ---
<Suzanne Whitley - Last Filed: 08/03/18 00:07> Subjective - Date & Time of Evaluation Date of Evaluation: 08/03/18 Time of Evaluation: 00:07 - Subjective Subjective: Progress Note Patient was seen and examined at bedside. He offers no complaints currently. He denies chest pain, shortness of breath, abdominal pain, nausea, vomiting, diarrhea, urinary complaints, headache. He states he simply would like to get some rest. Objective - Vital Signs/Intake and Output Vital Signs (last 24 hours): Temp Pulse Resp BP Pulse Ox 97.2 F L 73 20 106/67 100 08/02/18 15:03 08/02/18 15:03 08/02/18 15:03 08/02/18 15:03 08/02/18 15:03 Intake and Output: 08/02/18 08/03/18 18:59 06:59 Intake Total 480 Balance 480 - Medications Medications: Current Medications Acetaminophen (Tylenol 325mg Tab) 650 mg PO Q6 PRN PRN Reason: Pain, Mild (1-3) Last Admin: 08/01/18 14:20 Dose: 650 mg Albuterol/Ipratropium (Duoneb 3 Mg/0.5 Mg (3 Ml) Ud) 3 ml INH RQ4 PRN PRN Reason: Shortness of Breath Last Admin: 08/01/18 06:12 Dose: 3 ml Apixaban (Eliquis) 5 mg PO BID [facility] Last Admin: 08/02/18 17:21 Dose: 5 mg Colchicine (Colocrys) 0.6 mg PO BID [facility] Last Admin: 08/02/18 17:21 Dose: 0.6 mg Furosemide (Lasix) 20 mg PO DAILY [facility] Last Admin: 08/02/18 10:11 Dose: 20 mg Haloperidol (Haldol) 0.5 mg PO Q6H PRN PRN Reason: Agitation Last Admin: 07/27/18 18:03 Dose: 0.5 mg Losartan Potassium (Cozaar) 50 mg PO DAILY [facility] Last Admin: 08/02/18 10:12 Dose: 50 mg Pantoprazole Sodium (Protonix Ec Tab) 40 mg PO DAILY [facility] Last Admin: 08/02/18 10:11 Dose: 40 mg Risperidone (Risperdal Tab) 0.5 mg PO DAILY [facility] Last Admin: 08/02/18 10:12 Dose: 0.5 mg Rosuvastatin Calcium (Crestor) 10 mg PO HS [facility] Last Admin: 08/02/18 22:14 Dose: 10 mg Zolpidem Tartrate (Ambien) 5 mg PO HS PRN PRN Reason: Insomnia Last Admin: 08/02/18 22:15 Dose: 5 mg - Labs Labs: 07/28/18 07:52 07/28/18 07:52 PT 11.6 SECONDS (9.7-12.2) 07/25/18 22:50 INR 1.1 07/25/18 22:50 APTT 30 SECONDS (21-34) 07/25/18 22:50 - Constitutional Appears: Well, Non-toxic, No Acute Distress - Head Exam Head Exam: ATRAUMATIC, NORMOCEPHALIC - Eye Exam Eye Exam: EOMI, PERRL. absent: Conjunctival injection - ENT Exam ENT Exam: Mucous Membranes Moist - Respiratory Exam Respiratory Exam: Clear to Ausculation Bilateral, NORMAL BREATHING PATTERN. absent: Respiratory Distress - Cardiovascular Exam Cardiovascular Exam: REGULAR RHYTHM, +S1, +S2. absent: Gallop, Rubs, Murmur - GI/Abdominal Exam GI & Abdominal Exam: Soft, Normal Bowel Sounds. absent: Tenderness - Extremities Exam Extremities Exam: Normal Capillary Refill. absent: Calf Tenderness Additional comments: Dry skin noted on lower extremities bilaterally RUE: abrasion on dorsal 2nd right digit. nontender. - Neurological Exam Neurological Exam: Alert, Awake - Psychiatric Exam Additional comments: Currently pleasant but has episodes of agitation. - Skin Skin Exam: Dry, Intact, Warm Assessment and Plan - Assessment and Plan (Free Text) Assessment: 73 year old male with history of DVT, gout brought in to ED by EMS after being found on the street wet and cold, admitted for hypothermia. Pt temperature improved, hemodynamically stable for discharge. Awaiting social work to obtain placement. Psych endorsing patient has capacity to make decisions. Accepted to [facility] [place], awaiting insurance approval. Plan: Hypothermia, resolved - likely cold-induced as patient is homeless - T 95.7 on admission, now improved - CT Head (07/26): negative for acute pathology, age-appropriate cerebellar/cerebral atrophy - UA negative for leuk esterase, UTI unlikely - Blood Cx neg Asthma/COPD - pt saturating well on room air - CXR: mild congestion, COPD - duonebs q4h PRN - lasix 20mg PO daily Gout - no appreciable joint swelling - colchicine 0.6mg PO BID History of DVT - Eliquis 5mg PO BID History of HTN - BP controlled - Losartan 50mg PO daily. Depression/Schizoaffective disorder - As per patient, the problem is "my mind" - risperdal 0.5mg PO daily - haldol 0.5mg PO q6h PRN - Ambien 5mg PO HS PRN insomnia - Psych consulted, Dr. Bermudez - recs appreciated - Patient has capacity to make medical decisions PPX - DVT: Eliquis - GI: Protonix 40 daily - Diet: HHD, lactose restricted Dispo: Pending insurance approval for J[facility]. Case discussed with Dr. Ade Whitley, PGY1 <Hector Booker - Last Filed: 08/03/18 11:04> Objective - Vital Signs/Intake and Output Vital Signs (last 24 hours): Temp Pulse Resp BP Pulse Ox 97.9 F 70 20 123/71 100 08/03/18 07:00 08/03/18 07:00 08/03/18 07:00 08/03/18 09:46 08/03/18 07:00 - Medications Medications: Current Medications Acetaminophen (Tylenol 325mg Tab) 650 mg PO Q6 PRN PRN Reason: Pain, Mild (1-3) Last Admin: 08/01/18 14:20 Dose: 650 mg Albuterol/Ipratropium (Duoneb 3 Mg/0.5 Mg (3 Ml) Ud) 3 ml INH RQ4 PRN PRN Reason: Shortness of Breath Last Admin: 08/01/18 06:12 Dose: 3 ml Apixaban (Eliquis) 5 mg PO BID [facility] Last Admin: 08/03/18 09:46 Dose: 5 mg Colchicine (Colocrys) 0.6 mg PO BID [facility] Last Admin: 08/03/18 09:45 Dose: 0.6 mg Furosemide (Lasix) 20 mg PO DAILY [facility] Last Admin: 08/03/18 09:46 Dose: 20 mg Haloperidol (Haldol) 0.5 mg PO Q6H PRN PRN Reason: Agitation Last Admin: 07/27/18 18:03 Dose: 0.5 mg Losartan Potassium (Cozaar) 50 mg PO DAILY [facility] Last Admin: 08/03/18 09:46 Dose: 50 mg Pantoprazole Sodium (Protonix Ec Tab) 40 mg PO DAILY [facility] Last Admin: 08/03/18 09:46 Dose: 40 mg Risperidone (Risperdal Tab) 0.5 mg PO DAILY [facility] Last Admin: 08/03/18 09:46 Dose: 0.5 mg Rosuvastatin Calcium (Crestor) 10 mg PO HS [facility] Last Admin: 08/02/18 22:14 Dose: 10 mg Zolpidem Tartrate (Ambien) 5 mg PO HS PRN PRN Reason: Insomnia Last Admin: 08/02/18 22:15 Dose: 5 mg - Labs Labs: 07/28/18 07:52 07/28/18 07:52 PT 11.6 SECONDS (9.7-12.2) 07/25/18 22:50 INR 1.1 07/25/18 22:50 APTT 30 SECONDS (21-34) 07/25/18 22:50 Attending/Attestation - Attestation I have personally seen and examined this patient.: Yes I have fully participated in the care of the patient.: Yes I have reviewed all pertinent clinical information, including history, physical exam and plan: Yes Notes (Text): 08/03/18 11:02 Medical attending: Patient was seen and examined by me, reviewed the above note by the resident and agree with the above Today he was very pleasant to talk to (as reported previously he has been agressive at random) He talked about his food only Pending JOSAFAT hopefully soon. Hector Booker
[2018-08-03] MEDS: Pantoprazole 40 mg EC Tab PO SCH (09:46)
[2018-08-04] MEDS: Pantoprazole 40 mg EC Tab PO SCH (09:25)
--- NOTE | 2018-08-04 14:48 | CP.PCM.PN ---
<Evelio Dallas - Last Filed: 08/04/18 14:47> Subjective - Date & Time of Evaluation Date of Evaluation: 08/04/18 Time of Evaluation: 14:47 - Subjective Subjective: Evelio Dallas PGY1 Progress note for Dr. Booker Pt was examined at bedside this morning. He has no complaints. He denies chest pain, shortness of breath, abdominal pain, nausea, vomiting, diarrhea, dysuria. Objective - Vital Signs/Intake and Output Vital Signs (last 24 hours): Temp Pulse Resp BP Pulse Ox 97.7 F 88 20 133/77 100 08/04/18 07:00 08/04/18 07:00 08/04/18 07:00 08/04/18 09:25 08/04/18 07:00 Intake and Output: 08/04/18 08/04/18 06:59 18:59 Intake Total 500 Balance 500 - Medications Medications: Current Medications Acetaminophen (Tylenol 325mg Tab) 650 mg PO Q6 PRN PRN Reason: Pain, Mild (1-3) Last Admin: 08/01/18 14:20 Dose: 650 mg Albuterol/Ipratropium (Duoneb 3 Mg/0.5 Mg (3 Ml) Ud) 3 ml INH RQ4 PRN PRN Reason: Shortness of Breath Last Admin: 08/01/18 06:12 Dose: 3 ml Apixaban (Eliquis) 5 mg PO BID [facility] Last Admin: 08/04/18 09:25 Dose: 5 mg Colchicine (Colocrys) 0.6 mg PO BID [facility] Last Admin: 08/04/18 09:25 Dose: 0.6 mg Furosemide (Lasix) 20 mg PO DAILY [facility] Last Admin: 08/04/18 09:25 Dose: 20 mg Haloperidol (Haldol) 0.5 mg PO Q6H PRN PRN Reason: Agitation Last Admin: 07/27/18 18:03 Dose: 0.5 mg Losartan Potassium (Cozaar) 50 mg PO DAILY [facility] Last Admin: 08/04/18 09:28 Dose: 50 mg Pantoprazole Sodium (Protonix Ec Tab) 40 mg PO DAILY [facility] Last Admin: 08/04/18 09:25 Dose: 40 mg Risperidone (Risperdal Tab) 0.5 mg PO DAILY [facility] Last Admin: 08/04/18 09:25 Dose: 0.5 mg Rosuvastatin Calcium (Crestor) 10 mg PO HS [facility] Last Admin: 08/03/18 21:18 Dose: 10 mg Zolpidem Tartrate (Ambien) 5 mg PO HS PRN PRN Reason: Insomnia Last Admin: 08/02/18 22:15 Dose: 5 mg - Labs Labs: 07/28/18 07:52 07/28/18 07:52 PT 11.6 SECONDS (9.7-12.2) 07/25/18 22:50 INR 1.1 07/25/18 22:50 APTT 30 SECONDS (21-34) 07/25/18 22:50 - Additional Findings Additional findings: - Constitutional Appears: Well, No Acute Distress, Cachectic - Head Exam Head Exam: ATRAUMATIC, NORMOCEPHALIC - Eye Exam Eye Exam: EOMI, Normal appearance - ENT Exam ENT Exam: Mucous Membranes Moist - Respiratory Exam Respiratory Exam: Clear to Ausculation Bilateral - Cardiovascular Exam Cardiovascular Exam: +S1, +S2 - GI/Abdominal Exam GI & Abdominal Exam: Soft, Normal Bowel Sounds. absent: Tenderness - Extremities Exam Extremities Exam: Normal Capillary Refill Additional comments: RUE: abrasion on dorsal R 2nd digit, no surrounding erythema or warmth, no drainage xerosis in b/l LE - Neurological Exam Neurological Exam: Alert, Awake, Oriented x3 - Psychiatric Exam Psychiatric exam: Agitated - Skin Skin Exam: Normal Color, Warm Assessment and Plan - Assessment and Plan (Free Text) Assessment: 73yo AA M with PMH DVT, gout brought in to ED by EMS after being found on the street wet and cold, admitted for hypothermia. Pt temperature improved, hemod ynamically stable for discharge. Awaiting social work to obtain placement. Psych endorsing patient has capacity to make decisions. Accepted to [facility], awaiting insurance approval. Plan: Hypothermia, resolved - likely cold-induced as patient is homeless - T 95.7 on admission - temperature now improved - CT Head (07/26): negative for acute pathology, age-appropriate cerebellar/cerebral atrophy - UA negative for leuk esterase, UTI unlikely - Blood Cx neg Asthma/COPD - pt saturating well on room air - CXR: mild congestion, COPD - duonebs q4h PRN - lasix 20mg PO daily Gout - no appreciable joint swelling - colchicine 0.6mg PO BID H/o DVT - Eliquis 5mg PO BID Depression/Schizoaffective - pt reports talking to himself - risperdal 0.5mg PO daily - haldol 0.5mg PO q6h PRN - Psych consulted, Dr. Bermudez - recs appreciated - Patient has capacity to make medical decisions PPX - DVT: Eliquis - GI: Protonix 40 daily - Diet: HHD, lactose restricted Pt seen and case reviewed with Dr. Booker <Hector Booker H - Last Filed: 08/04/18 14:52> Objective - Vital Signs/Intake and Output Vital Signs (last 24 hours): Temp Pulse Resp BP Pulse Ox 97.7 F 88 20 133/77 100 08/04/18 07:00 08/04/18 07:00 08/04/18 07:00 08/04/18 09:25 08/04/18 07:00 Intake and Output: 08/04/18 08/04/18 06:59 18:59 Intake Total 500 Balance 500 - Medications Medications: Current Medications Acetaminophen (Tylenol 325mg Tab) 650 mg PO Q6 PRN PRN Reason: Pain, Mild (1-3) Last Admin: 08/01/18 14:20 Dose: 650 mg Albuterol/Ipratropium (Duoneb 3 Mg/0.5 Mg (3 Ml) Ud) 3 ml INH RQ4 PRN PRN Reason: Shortness of Breath Last Admin: 08/01/18 06:12 Dose: 3 ml Apixaban (Eliquis) 5 mg PO BID [facility] Last Admin: 08/04/18 09:25 Dose: 5 mg Colchicine (Colocrys) 0.6 mg PO BID [facility] Last Admin: 08/04/18 09:25 Dose: 0.6 mg Furosemide (Lasix) 20 mg PO DAILY [facility] Last Admin: 08/04/18 09:25 Dose: 20 mg Haloperidol (Haldol) 0.5 mg PO Q6H PRN PRN Reason: Agitation Last Admin: 07/27/18 18:03 Dose: 0.5 mg Losartan Potassium (Cozaar) 50 mg PO DAILY [facility] Last Admin: 08/04/18 09:28 Dose: 50 mg Pantoprazole Sodium (Protonix Ec Tab) 40 mg PO DAILY [facility] Last Admin: 12/26/18 09:25 Dose: 40 mg Risperidone (Risperdal Tab) 0.5 mg PO DAILY [facility] Last Admin: 08/04/18 09:25 Dose: 0.5 mg Rosuvastatin Calcium (Crestor) 10 mg PO HS [facility] Last Admin: 08/03/18 21:18 Dose: 10 mg Zolpidem Tartrate (Ambien) 5 mg PO HS PRN PRN Reason: Insomnia Last Admin: 08/02/18 22:15 Dose: 5 mg - Labs Labs: 07/28/18 07:52 07/28/18 07:52 PT 11.6 SECONDS (9.7-12.2) 07/25/18 22:50 INR 1.1 07/25/18 22:50 APTT 30 SECONDS (21-34) 07/25/18 22:50 Attending/Attestation - Attestation I have personally seen and examined this patient.: Yes I have fully participated in the care of the patient.: Yes I have reviewed all pertinent clinical information, including history, physical exam and plan: Yes Notes (Text): 08/04/18 14:51 Medical attending: Patient was seen and examined by me. Agree with the above note by the resident The patient was not in any acute distress - he was not agitated today - he was very talkative. From what I am being told he is J[facility]AFAT approved however pending insurance clarification and approval Hector Booker
--- NOTE | 2018-08-04 15:31 | CP.PCM.DIS ---
<Evelio Dallas - Last Filed: 08/04/18 15:28> Provider - Provider Date of Admission: 07/26/18 05:58 Attending physician: Rosa Helm MD Consults: 07/26/18 09:17 Psychiatry Consult Routine Comment: Consulting Provider: Sam Bermudez Consulting Physician: Sam Bermudez Reason for Consult: pt reporting depression, no SI/HI Time Spent in preparation of Discharge (in minutes): 70 Hospital Course - Lab Results Lab Results: Micro Results 07/25/18 22:18 Blood Blood Culture - Final NO GROWTH AFTER 5 DAYS 07/25/18 22:18 Blood Gram Stain - Final TEST NOT PERFORMED 07/25/18 22:18 Blood Blood Culture - Final NO GROWTH AFTER 5 DAYS 07/25/18 22:18 Blood Gram Stain - Final TEST NOT PERFORMED Most Recent Lab Values WBC 4.9 K/uL (4.8-10.8) 07/28/18 07:52 RBC 3.63 Mil/uL (4.40-5.90) L 07/28/18 07:52 Hgb 10.7 g/dL (12.0-18.0) L 07/28/18 07:52 Hct 32.1 % (35.0-51.0) L 07/28/18 07:52 MCV 88.4 fL (80.0-94.0) 07/28/18 07:52 MCH 29.3 pg (27.0-31.0) 07/28/18 07:52 MCHC 33.2 g/dL (33.0-37.0) 07/28/18 07:52 RDW 14.0 % (11.5-14.5) 07/28/18 07:52 Plt Count 174 K/uL (130-400) 07/28/18 07:52 MPV 8.7 fL (7.2-11.7) 07/28/18 07:52 Neut % (Auto) 49.5 % (50.0-75.0) L 07/28/18 07:52 Lymph % (Auto) 35.1 % (20.0-40.0) 07/28/18 07:52 [place] % (Auto) 11.8 % (0.0-10.0) H 07/28/18 07:52 Eos % (Auto) 3.1 % (0.0-4.0) 07/28/18 07:52 Baso % (Auto) 0.5 % (0.0-2.0) 07/28/18 07:52 Neut # (Auto) 2.4 K/uL (1.8-7.0) 07/28/18 07:52 Lymph # (Auto) 1.7 K/uL (1.0-4.3) 07/28/18 07:52 [place] # (Auto) 0.6 K/uL (0.0-0.8) 07/28/18 07:52 Eos # (Auto) 0.2 K/uL (0.0-0.7) 07/28/18 07:52 Baso # (Auto) 0.0 K/uL (0.0-0.2) 07/28/18 07:52 PT 11.6 SECONDS (9.7-12.2) 07/25/18 22:50 INR 1.1 07/25/18 22:50 APTT 30 SECONDS (21-34) 07/25/18 22:50 Puncture Site Lr 07/25/18 22:46 pCO2 42 mm/Hg (35-45) 07/25/18 22:46 pO2 69 mm/Hg (80-100) L 07/25/18 22:46 HCO3 22.9 mmol/L (21-28) 07/25/18 22:46 ABG pH 7.35 (7.35-7.45) 07/25/18 22:46 ABG Total CO2 24.5 mmol/L (22-28) 07/25/18 22:46 ABG O2 Saturation 96.1 % (95-98) 07/25/18 22:46 ABG Base Excess -2.4 mmol/L (-2.0-3.0) L 07/25/18 22:46 [place] Test Pos 07/25/18 22:46 ABG Potassium 3.5 mmol/L (3.6-5.2) L 07/25/18 22:46 Sodium 138.0 mmol/l (132-148) 07/25/18 22:46 Chloride 106.0 mmol/L (98-107) 07/25/18 22:46 Glucose 158 mg/dl (75-110) H 07/25/18 22:46 Lactate 1.5 mmol/L (0.7-2.1) 07/25/18 22:46 Sodium 137 mmol/L (132-148) 07/28/18 07:52 Potassium 3.9 mmol/L (3.6-5.2) 07/28/18 07:52 Chloride 102 mmol/L (98-107) 07/28/18 07:52 Carbon Dioxide 30 mmol/L (22-30) 07/28/18 07:52 Anion Gap 9 (10-20) L 07/28/18 07:52 BUN 21 mg/dL (9-20) H 07/28/18 07:52 Creatinine 0.7 mg/dL (0.8-1.5) L 07/28/18 07:52 Est GFR ( Amer) > 60 07/28/18 07:52 Est GFR (Non-Af Amer) > 60 07/28/18 07:52 POC Glucose (mg/dL) 110 mg/dL (65-110) 08/03/18 20:53 Random Glucose 158 mg/dL (75-110) H 07/28/18 07:52 Calcium 8.2 mg/dl (8.6-10.4) L 07/28/18 07:52 Phosphorus 3.2 mg/dL (2.5-4.5) 07/28/18 07:52 Magnesium 1.9 mg/dL (1.6-2.3) 07/28/18 07:52 Total Bilirubin 0.4 mg/dL (0.2-1.3) 07/28/18 07:52 AST 50 U/L (17-59) 07/28/18 07:52 ALT 31 U/L (21-72) 07/28/18 07:52 Alkaline Phosphatase 68 U/L (38-126) 07/28/18 07:52 Total Protein 6.0 g/dL (6.3-8.3) L 07/28/18 07:52 Albumin 3.1 g/dL (3.5-5.0) L 07/28/18 07:52 Globulin 2.9 gm/dL (2.2-3.9) 07/28/18 07:52 Albumin/Globulin Ratio 1.1 (1.0-2.1) 07/28/18 07:52 Lipase 104 U/L (23-300) 07/25/18 22:50 Arterial Blood Potassium 3.5 mmol/L (3.6-5.2) L 07/25/18 22:46 Urine Color Straw (YELLOW) 07/26/18 00:10 Urine Clarity Clear (Clear) 07/26/18 00:10 Urine pH 5.0 (5.0-8.0) 07/26/18 00:10 Ur Specific [place] 1.014 (1.003-1.030) 07/26/18 00:10 Urine Protein 1+ mg/dL (NEGATIVE) H 07/26/18 00:10 Urine Glucose (UA) 1+ mg/dL (Normal) H 07/26/18 00:10 Urine Ketones 1+ mg/dL (NEGATIVE) H 07/26/18 00:10 Urine Blood Negative (NEGATIVE) 07/26/18 00:10 Urine Nitrate Negative (NEGATIVE) 07/26/18 00:10 Urine Bilirubin Negative (NEGATIVE) 07/26/18 00:10 Urine Urobilinogen Normal mg/dL (0.2-1.0) 07/26/18 00:10 Ur Leukocyte Esterase Neg Crow/uL (Negative) 07/26/18 00:10 Urine WBC (Auto) < 1 /hpf (0-5) 07/26/18 00:10 Urine RBC (Auto) < 1 /hpf (0-3) 07/26/18 00:10 Urine Opiates Screen Negative (NEGATIVE) 07/26/18 11:30 Urine Methadone Screen Negative (NEGATIVE) 07/26/18 11:30 Ur Barbiturates Screen Negative (NEGATIVE) 07/26/18 11:30 Ur Phencyclidine Scrn Negative (NEGATIVE) 07/26/18 11:30 Ur Amphetamines Screen Negative (NEGATIVE) 07/26/18 11:30 U Benzodiazepines Scrn Negative (NEGATIVE) 07/26/18 11:30 U Oth Cocaine Metabols Negative (NEGATIVE) 07/26/18 11:30 U Cannabinoids Screen Negative (NEGATIVE) 07/26/18 11:30 Alcohol, Quantitative < 10 mg/dl (0-10) 07/25/18 22:50 - Hospital Course Hospital Course: Upon Admission: Pt is a 73yo AA M with PMH DVT, gout brought in to ED by EMS after being found on the street wet and cold. Pt is homeless. He currently reports some abdominal pain but has no other complaints. When asked regarding medical history, he endorses DVT and gout. CXR was negative for any active disease. Pt was found to be hypothermic, and admitted for hypothermia. Hospital Course: Pt was admitted for evaluation and treatment of hypothermia. Temperature was restored any pt became more responsive to questions. Home medications were restarted. Infectious cause of hypothermia was ruled out, hypothermia was likely secondary to homelessness. Psychiatry was consulted and started patient on risperdal and haldol PRN. Pt was deemed stable for discharge. Upon Discharge: Pt was deemed stable for discharge to [facility]. Pt was accepted to [facility] and insurance approved it. Pt was instructed to take medications as prescribed. He understood instructions and agreed. Discharge Exam - Head Exam Head Exam: ATRAUMATIC, NORMOCEPHALIC - Eye Exam Eye Exam: EOMI, PERRL Pupil Exam: NORMAL ACCOMODATION - Respiratory Exam Respiratory Exam: Clear to PA & Lateral, NORMAL BREATHING PATTERN. absent: Rales, Rhonchi, Wheezes, UNREMARKABLE - Cardiovascular Exam Cardiovascular Exam: REGULAR RHYTHM, +S1, +S2. absent: Gallop, Rubs, Systolic Murmur - GI/Abdominal Exam GI & Abdominal Exam: Normal Bowel Sounds. absent: Distended, Firm, Soft, Tenderness - Extremities Exam Extremities exam: normal inspection - Neurological Exam Neurological exam: Alert, Oriented x3 - Psychiatric Exam Psychiatric exam: Normal Affect, Normal Mood Discharge Plan - Discharge Medications Prescriptions: RX: Albuterol 0.042% [Albuterol 0.042% Inhal Brittani (1.25mg/3ml) UD] 1 dose INH Q4 PRN 30 Days neb PRN Reason: Shortness Of Breath RX: Albuterol HFA [Ventolin HFA 90 mcg/actuation (8 g)] 2 puff INH BID #1 inhaler RX: Albuterol/Ipratropium [Combivent Respimat] 2 puff INH BID #1 inhaler RX: Apixaban [Eliquis] 5 mg PO BID #60 tab RX: Atorvastatin [Lipitor] 1 tab PO DAILY #30 tab RX: Colchicine 0.6 mg PO BID #60 tablet RX: Furosemide [Lasix] 20 mg PO DAILY #30 tablet RX: Losartan [Cozaar] 1 tab PO DAILY #30 tab RX: risperiDONE [RisperDAL Tab] 0.5 mg PO DAILY #30 tab RX: SITagliptin [Januvia] 1 tab PO DAILY #30 tab RX: Zolpidem [Ambien] 1 tab PO HS PRN #15 tab PRN Reason: Insomnia - Follow Up Plan Condition: FAIR Disposition: HOME/ ROUTINE Instructions: Hypothermia, COPD Including Emphysema (DC), Apixaban Additional Instructions: Please follow up with your primary care physician, Dr. Nolasco, within 1 week of discharge from rehab. Please call to make an appointment. Please take your medications as prescribed. Please return to the ED if symptoms return. Take care and be well. Referrals: Kannan Nolasco DO [Staff Provider] - <Hector Booker - Last Filed: 08/04/18 18:40> Provider - Provider Date of Admission: 07/26/18 05:58 Attending physician: Rosa Helm MD Consults: 07/26/18 09:17 Psychiatry Consult Routine Comment: Consulting Provider: Sam Bermudez Consulting Physician: Sam Bermudez Reason for Consult: pt reporting depression, no SI/HI Hospital Course - Lab Results Lab Results: Micro Results 07/25/18 22:18 Blood Blood Culture - Final NO GROWTH AFTER 5 DAYS 07/25/18 22:18 Blood Gram Stain - Final TEST NOT PERFORMED 07/25/18 22:18 Blood Blood Culture - Final NO GROWTH AFTER 5 DAYS 07/25/18 22:18 Blood Gram Stain - Final TEST NOT PERFORMED Most Recent Lab Values WBC 4.9 K/uL (4.8-10.8) 07/28/18 07:52 RBC 3.63 Mil/uL (4.40-5.90) L 07/28/18 07:52 Hgb 10.7 g/dL (12.0-18.0) L 07/28/18 07:52 Hct 32.1 % (35.0-51.0) L 07/28/18 07:52 MCV 88.4 fL (80.0-94.0) 07/28/18 07:52 MCH 29.3 pg (27.0-31.0) 07/28/18 07:52 MCHC 33.2 g/dL (33.0-37.0) 07/28/18 07:52 RDW 14.0 % (11.5-14.5) 07/28/18 07:52 Plt Count 174 K/uL (130-400) 07/28/18 07:52 MPV 8.7 fL (7.2-11.7) 07/28/18 07:52 Neut % (Auto) 49.5 % (50.0-75.0) L 07/28/18 07:52 Lymph % (Auto) 35.1 % (20.0-40.0) 07/28/18 07:52 [place] % (Auto) 11.8 % (0.0-10.0) H 07/28/18 07:52 Eos % (Auto) 3.1 % (0.0-4.0) 07/28/18 07:52 Baso % (Auto) 0.5 % (0.0-2.0) 07/28/18 07:52 Neut # (Auto) 2.4 K/uL (1.8-7.0) 07/28/18 07:52 Lymph # (Auto) 1.7 K/uL (1.0-4.3) 07/28/18 07:52 [place] # (Auto) 0.6 K/uL (0.0-0.8) 07/28/18 07:52 Eos # (Auto) 0.2 K/uL (0.0-0.7) 07/28/18 07:52 Baso # (Auto) 0.0 K/uL (0.0-0.2) 07/28/18 07:52 PT 11.6 SECONDS (9.7-12.2) 07/25/18 22:50 INR 1.1 07/25/18 22:50 APTT 30 SECONDS (21-34) 07/25/18 22:50 Puncture Site Lr 07/25/18 22:46 pCO2 42 mm/Hg (35-45) 07/25/18 22:46 pO2 69 mm/Hg (80-100) L 07/25/18 22:46 HCO3 22.9 mmol/L (21-28) 07/25/18 22:46 ABG pH 7.35 (7.35-7.45) 07/25/18 22:46 ABG Total CO2 24.5 mmol/L (22-28) 07/25/18 22:46 ABG O2 Saturation 96.1 % (95-98) 07/25/18 22:46 ABG Base Excess -2.4 mmol/L (-2.0-3.0) L 07/25/18 22:46 [place] Test Pos 07/25/18 22:46 ABG Potassium 3.5 mmol/L (3.6-5.2) L 07/25/18 22:46 Sodium 138.0 mmol/l (132-148) 07/25/18 22:46 Chloride 106.0 mmol/L (98-107) 07/25/18 22:46 Glucose 158 mg/dl (75-110) H 07/25/18 22:46 Lactate 1.5 mmol/L (0.7-2.1) 07/25/18 22:46 Sodium 137 mmol/L (132-148) 07/28/18 07:52 Potassium 3.9 mmol/L (3.6-5.2) 07/28/18 07:52 Chloride 102 mmol/L (98-107) 07/28/18 07:52 Carbon Dioxide 30 mmol/L (22-30) 07/28/18 07:52 Anion Gap 9 (10-20) L 07/28/18 07:52 BUN 21 mg/dL (9-20) H 07/28/18 07:52 Creatinine 0.7 mg/dL (0.8-1.5) L 07/28/18 07:52 Est GFR ( Amer) > 60 07/28/18 07:52 Est GFR (Non-Af Amer) > 60 07/28/18 07:52 POC Glucose (mg/dL) 110 mg/dL (65-110) 08/04/18 11:36 Random Glucose 158 mg/dL (75-110) H 07/28/18 07:52 Calcium 8.2 mg/dl (8.6-10.4) L 07/28/18 07:52 Phosphorus 3.2 mg/dL (2.5-4.5) 07/28/18 07:52 Magnesium 1.9 mg/dL (1.6-2.3) 07/28/18 07:52 Total Bilirubin 0.4 mg/dL (0.2-1.3) 07/28/18 07:52 AST 50 U/L (17-59) 07/28/18 07:52 ALT 31 U/L (21-72) 07/28/18 07:52 Alkaline Phosphatase 68 U/L (38-126) 07/28/18 07:52 Total Protein 6.0 g/dL (6.3-8.3) L 07/28/18 07:52 Albumin 3.1 g/dL (3.5-5.0) L 07/28/18 07:52 Globulin 2.9 gm/dL (2.2-3.9) 07/28/18 07:52 Albumin/Globulin Ratio 1.1 (1.0-2.1) 07/28/18 07:52 Lipase 104 U/L (23-300) 07/25/18 22:50 Arterial Blood Potassium 3.5 mmol/L (3.6-5.2) L 07/25/18 22:46 Urine Color Straw (YELLOW) 07/26/18 00:10 Urine Clarity Clear (Clear) 07/26/18 00:10 Urine pH 5.0 (5.0-8.0) 07/26/18 00:10 Ur Specific [place] 1.014 (1.003-1.030) 07/26/18 00:10 Urine Protein 1+ mg/dL (NEGATIVE) H 07/26/18 00:10 Urine Glucose (UA) 1+ mg/dL (Normal) H 07/26/18 00:10 Urine Ketones 1+ mg/dL (NEGATIVE) H 07/26/18 00:10 Urine Blood Negative (NEGATIVE) 07/26/18 00:10 Urine Nitrate Negative (NEGATIVE) 07/26/18 00:10 Urine Bilirubin Negative (NEGATIVE) 07/26/18 00:10 Urine Urobilinogen Normal mg/dL (0.2-1.0) 07/26/18 00:10 Ur Leukocyte Esterase Neg Crow/uL (Negative) 07/26/18 00:10 Urine WBC (Auto) < 1 /hpf (0-5) 07/26/18 00:10 Urine RBC (Auto) < 1 /hpf (0-3) 07/26/18 00:10 Urine Opiates Screen Negative (NEGATIVE) 07/26/18 11:30 Urine Methadone Screen Negative (NEGATIVE) 07/26/18 11:30 Ur Barbiturates Screen Negative (NEGATIVE) 07/26/18 11:30 Ur Phencyclidine Scrn Negative (NEGATIVE) 07/26/18 11:30 Ur Amphetamines Screen Negative (NEGATIVE) 07/26/18 11:30 U Benzodiazepines Scrn Negative (NEGATIVE) 07/26/18 11:30 U Oth Cocaine Metabols Negative (NEGATIVE) 07/26/18 11:30 U Cannabinoids Screen Negative (NEGATIVE) 07/26/18 11:30 Alcohol, Quantitative < 10 mg/dl (0-10) 07/25/18 22:50 Attending/Attestation - Attestation I have personally seen and examined this patient.: Yes I have fully participated in the care of the patient.: Yes I have reviewed all pertinent clinical information, including history, physical exam and plan: Yes Notes (Text): 08/04/18 18:31 Medical attending: Patient was seen and examined by me. Agree with the above note by the resident The patient was not in any acute distress, he has at time to time been verbally aggressive - other times very cooperative with us He is currently in the process of being discharged JOSAFAT now. 08/04/18 18:40
[2018-08-04 17:09] VITALS: BP 106/70; PULSE 90; TEMP 98; O2SAT 97
== END 2018-08-04 19:41 | DRG 923 ==
LOC: EDBD 21:48 → C.ER 21:48 → C.9E 07-26 05:58 → C.5S 07-26 07:21 → C.6T 07-29 14:12
PROVIDERS: ADMIT Internal Medicine; ATTEND Internal Medicine
PROC: GZHZZZZ Group Psychotherapy (ICD-10-PCS; principal; 2018-07-26)
PROC: GZ56ZZZ Individual Psychotherapy, Supportive (ICD-10-PCS; 2018-07-26)
DX: T68.XXXA Hypothermia, initial encounter (principal); R41.82 Altered mental status, unspecified; F25.9 Schizoaffective disorder, unspecified; Z59.0 Homelessness; M10.9 Gout, unspecified; R10.9 Unspecified abdominal pain; J44.9 Chronic obstructive pulmonary disease, unspecified; Z86.718 Personal history of other venous thrombosis and embolism; Z79.01 Long term (current) use of anticoagulants; F32.9 Major depressive disorder, single episode, unspecified; X31.XXXA Exposure to excessive natural cold, initial encounter